=== PATIENT | female | born 1975 | race Caucasian/White ===

== ENCOUNTER 2016-10-07 08:56 | Emergency (ER) | payer BC ==
[2016-10-07 09:30] VITALS: BP 114/78
--- NOTE | 2016-10-07 10:13 | UC ---
Throat Pain/Nasal Wil HPI - HPI Summary HPI Summary: ONE WEEK OF COLD SYMPTOMS SINUS PRESSURE AND CONGESTION. NO FEVER. WORSENING FACIAL PRESSURE. - History of Current Complaint Chief Complaint: UCRespiratory Stated Complaint: SINUS/CHEST CONGESTION Time Seen by Provider: 10/07/16 09:36 Hx Obtained From: Patient Hx Last Menstrual Period: hysterectomy Onset/Duration: Gradual Onset, Lasting Weeks, Still Present Severity: Moderate Cough: Nonproductive Associated Signs & Symptoms: Positive: Hoarseness, Sinus Discomfort, Nasal Discharge - Epiglottits Risk Factors Epiglottis Risk Factors: Negative - Allergies/Home Medications Allergies/Adverse Reactions: Allergies Allergy/AdvReac Type Severity Reaction Status Date / Time Ketorolac Allergy Intermediate Swelling Verified 10/07/16 09:31 Of Face,Lips,& Throat Amoxicillin Allergy YEAST Verified 10/07/16 09:31 INFECTIONS Tramadol Allergy ,SEVERE Verified 10/07/16 09:31 HEADACHE NSAIDs AdvReac Intermediate See Comment Verified 10/07/16 09:31 PMH/Surg Hx/FS Hx/Imm Hx Previously Healthy: Yes Endocrine History Of: Reports: Diabetes - Pre-DIABETIC Cardiovascular History Of: Reports: Cardiac Disorders - SVT /ablation 20 years ago Denies: Hypertension, Congestive Heart Failure Respiratory History Of: Reports: Bronchitis - Hx OF, LAST WAS 2015, STATES OK NOW GI/ History Of: Reports: Ulcer - 05/04 PERFORATED PEPTIC ULCER, Kidney Stones - Hx OF , PASSED ON OWN, NONE IN RECENT YEARS Denies: Renal Disease Neurological History Of: Reports: Migraine - Hx OF, EVERY FEW MONTHS - Surgical History Surgical History: Yes Surgery Procedure, Year, and Place[place] 1991[place] [facility] [place] [facility] [facility]. 1992 VENTRAL HERNIA REPAIR & ABLATION [facility]. 2009 HE[place]ER [place] [facility] [place] GA[place] [facility] [place]. 2014 ADHESIONS REMOVED [place]BDOMEN [facility] [place] 2013 ABLATION [facility]. 2016 hernia repair with mesh insert - Family History Known Family History: Positive: Diabetes - Social History Occupation: Employed Full-time Lives: With Family Alcohol Use: Occasionally Alcohol Amount: 2-3 PER MONTH Substance Use Type: None Smoking Status (MU): Heavy Every Day Tobacco Smoker Type: Cigarettes Amount Used/How Often: <1 PACK A DAY 20 YRS Have You Smoked in the Last Year: Yes Household Exposure Type: Cigarettes Cessation Counseling: Counseled 3+Min - 10 Min - Immunization History Most Recent Influenza Vaccination: 2008 Most Recent Tetanus Shot: Up to date Most Recent Pneumonia Vaccination: 2003 AT LEAST Review of Systems Constitutional: Negative Skin: Negative Eyes: Negative ENT: Ear Ache, Nasal Discharge Respiratory: Cough Cardiovascular: Negative Gastrointestinal: Negative Genitourinary: Negative Motor: Negative Neurovascular: Negative Musculoskeletal: Negative Neurological: Negative Psychological: Negative All Other Systems Reviewed And Are Negative: Yes Physical Exam Triage Information Reviewed: Yes Appearance: No Pain Distress, Well-Nourished, Ill-Appearing - MILD Vital Signs: Initial Vital Signs Temp 98.7 F 10/07/16 09:26 Pulse 97 10/07/16 09:26 Resp 20 10/07/16 09:26 BP 114/78 10/07/16 09:26 Pulse Ox 100 10/07/16 09:26 Vital Signs Reviewed: Yes Eye Exam: Normal Eyes: Positive: Conjunctiva Clear ENT: Positive: Hearing grossly normal, Pharynx normal, Nasal congestion, TM dull Dental Exam: Normal Neck exam: Normal Neck: Positive: Nontender, No Lymphadenopathy Respiratory Exam: Normal Respiratory: Positive: Chest non-tender, Lungs clear, Normal breath sounds, No respiratory distress, No accessory muscle use Cardiovascular Exam: Normal Cardiovascular: Positive: RRR, No Murmur, Pulses Normal Abdominal Exam: Normal Abdomen Description: Positive: Nontender, No Organomegaly Musculoskeletal Exam: Normal Neurological Exam: Normal Psychological Exam: Normal Skin Exam: Normal Throat Pain/Nasal Course/Dx - Differential Dx/Diagnosis Differential Diagnosis/HQI/PQRI: Sinusitis, Tonsillitis, URI Provider Diagnoses: SINUSITIS Discharge - Discharge Plan Condition: Stable Disposition: HOME Prescriptions: DOXYcycline CAP(*) [DOXYcycline 100MG CAP(*)] 100 mg PO BID #20 cap Fluticasone NASAL SPRAY 50MCG* [Flonase NASAL SPRAY 50MCG*] 2 spray BOTH NARES DAILY #1 btl Patient Education Materials: Sinusitis (ED) Referrals: Iraida Robles NP [Primary Care Provider] -
== END 2016-10-07 10:10 | disposition home or self-care (01) ==
LOC: UCEAST 08:56
DX: J32.9 Chronic sinusitis, unspecified (principal); Z88.5 Allergy status to narcotic agent; Z88.6 Allergy status to analgesic agent; Z88.0 Allergy status to penicillin; F17.210 Nicotine dependence, cigarettes, uncomplicated; Z71.6 Tobacco abuse counseling
CPT/HCPCS: 99212; G0463

== ENCOUNTER 2016-12-19 09:34 | Inpatient (IN) | payer BC ==
--- NOTE | 2016-12-09 19:51 | HP ---
ADMISSION HISTORY AND PHYSICAL: DATE OF ADMISSION: 12/19/16 ATTENDING SURGEON: Dr. Anai Bunn (dictated by ESTELA Cadena). CHIEF COMPLAINT: Persistent abdominal pain. HISTORY OF PRESENT ILLNESS: This is a 41-year-old female, who has undergone multiple abdominal procedures including hernia repairs, the most recent being from June 2016. Surgery at that time included extensive lysis of adhesions , which included both omentum and small bowel. A large Ventralex mesh was used to cover multiple upper abdominal defects. Since that time, the patient has had persistent right-sided mid abdominal pain that comes as both jolts or shocks of sharp pain that will be unrelated to movement or activity. In addition, she notes a burning and tearing pain in the same area that typically occurs with movement including even simple movements such as sitting up from the exam table. More recently in the past 3 or 4 weeks, she has begun to notice left upper quadrant discomfort of the same type as noted above with the right mid abdomen. Finally, the patient has also had some GI symptoms including bloating and gassiness in the midepigastric region with associated nausea and occasional vomiting. These symptoms occur postprandial, but regardless of type or amount of food or liquid. The symptoms even occur with just water. She states that she is down to eating just one meal a day and has experienced weight loss of approximately 16 pounds since her last surgery. Initially, she had a CT scan in July ordered by Dr. Bunn, which showed no acute problems. There was a subsequent CT ordered through the [facility] on 10/14/16, which by report also showed no acute findings including no evidence of recurrent hernia. Finally, a HIDA scan with CCK was done on showing normal filling and emptying of the gallbladder with an ejection fraction of 98%. Dr. Bunn has discussed with her all of the indications and ramifications of additional surgery. The patient understands the risks and benefits as well as alternatives, but feels that she is "at the end of her road " and would like to proceed as scheduled with exploratory laparotomy, lysis of adhesions, possible removal of abdominal wall mesh, possible bowel resection ( she does have diverticula on both sides of the colon though with no evidence of history to suggest acute diverticulitis). PAST MEDICAL HISTORY: GERD with hiatal hernia (status post Maggie fundoplication, 2009). She had a gastric perforation in the following year from NSAID use; this required laparotomy and partial take down of her Maggie fundoplication. Most recent EGD by Dr. Hardin did show a hiatal hernia. She continues to have some GERD symptoms. She also has a past history of SVT with 2 attempted ablations. She rarely notices any symptoms at present. PAST SURGICAL HISTORY: Include laparoscopic repair of multiple ventral hernias with mesh, June 2016; x2 via low transverse incision; laparoscopic supracervical subtotal hysterectomy (she has at least 1 ovary); ablation for SVT as noted above; laparoscopic Maggie fundoplication with subsequent exploratory laparotomy for gastric perforation. Laparoscopic ventral hernia repair with mesh, 2011 and laparoscopy converted to open exploration for lysis of adhesions, 2013. CURRENT MEDICATIONS: 1. Omeprazole 40 mg b.i.d. 2. Milk of magnesia 30 mL q.h.s. 3. Extra Strength Tylenol 500 mg 2 tablets up to 4 times a day p.r.n. 4. She also takes calcium, zinc, and magnesium supplements once daily. DRUG ALLERGIES: NSAIDs (she does not take because of her prior gastric perforation history), TRAMADOL (BURRITO MAKER effects) (the patient has tolerated other narcotics), AMOXICILLIN (yeast infection). FAMILY HISTORY: Negative for anesthesia problems, bleeding, or clotting disorders. SOCIAL HISTORY: The patient is . She has 1 child. She is not currently working. She continues to smoke approximately one-half pack per day and was advised regarding the benefits of smoking cessation. She drinks up to 1 to 2 drinks on occasion but infrequently. She denies other drug use. REVIEW OF SYSTEMS: General: No recent constitutional symptoms or acute illnesses other than described in the HPI. Her weight has decreased as noted above. Cardiovascular: No history of hypertension, chest pain, or palpitations , or heart murmur. Respiratory: No history of asthma, chronic cough, or shortness of breath. GI: As above per HPI. She does have some chronic constipation. : No problems reported. 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 She is encouraged to have these done through her PCP or FOOD TRUCK CATERER. Endocrine: As above. No additions. PHYSICAL EXAMINATION GENERAL: Well-nourished, somewhat obese female, in no acute distress. VITAL SIGNS: 5 feet 2 inches, weight 198 pounds, BMI 36.2, blood pressure 122/ 72, pulse 78, respirations 16. HEENT: Pupils equal, round, and reactive. EOMs intact. No conjunctival pallor. Oropharynx: Teeth in good repair. No intraoral lesions. NECK: No lymphadenopathy, thyromegaly, or masses. LUNGS: Clear to auscultation. No wheezes. HEART: Regular rate and rhythm. No murmur noted. BREASTS: Not examined. ABDOMEN: Well-healed upper midline incision. No obvious visible or palpable bulges or masses. She has some mild tenderness in the epigastric region and some cnci-zl-jzvwolhy tenderness in the right mid abdomen. The remainder of the abdomen is soft and nontender. No suspicious masses or organomegaly. GENITALIA AND RECTAL: Not done. BACK: No spinous process or CVA tenderness. EXTREMITIES: No edema. NEUROLOGICAL: Grossly intact. SKIN: Warm and dry. No suspicious rashes or lesions noted. IMPRESSION: Chronic and recurrent abdominal pain after most recent ventral hernia repair with mesh. PLAN: Exploratory laparotomy; lysis of adhesions; possible removal of abdominal wall mesh; possible bowel resection. ESTELA BROOKS CC: Iraida Robles NP, Merlin Deal* [id number] #: [id number] MTDD
[~2016-12-19 09:34] MED LIST: Buffered Lidocaine 1% SYR 3ML* 3 ML/SYR SYRINGE INTRADERM ONE
[2016-12-19] MEDS ORDERED: ceFAZolin 2 GM PREMIX(*) 2 GM/50 ML BAG IVPB ONE (09:44)
[2016-12-19] MEDS ORDERED: fentaNYL* 50 MCG/ML 2 ML VIAL (100 MCG VIAL) ONE ×5 (11:03→15:27)
[2016-12-19] MEDS ORDERED: Midazolam* 1 MG/ML 2 ML VIAL (2 MG) ONE ×2 (11:03→11:54)
[2016-12-19] MEDS ORDERED: KETAMINE HCL* 50 MG/ML 10 ML VIAL ONE (12:08)
[2016-12-19] MEDS ORDERED: Cisatracurium* 2 MG/ML MDV 5 ML ONE (12:25)
[2016-12-19] MEDS ORDERED: Morphine PF AMP (0.5MG/ML)* 5 MG/10 ML AMP ONE (12:44)
[2016-12-19] MEDS ORDERED: Propofol* 10 MG/ML 20 ML BTL IV PUSH ONE (12:47)
[2016-12-19] MEDS ORDERED: Lidocaine 2% EPI 1:200000 MPF* 20 ML VIAL ONE (12:47)
[2016-12-19] MEDS ORDERED: Succinylcholine* 20 MG/ML 10 ML VIAL ONE (12:47)
[2016-12-19] MEDS ORDERED: Famotidine IV* 10 MG/ML 2 ML (20 mg) ONE (12:47)
[2016-12-19] MEDS ORDERED: Dexamethasone IV* 4 MG/ML 1 ML (4 MG) ONE (12:47)
[2016-12-19] MEDS ORDERED: Lidocaine 2% PF * 5 ML VIAL ONE (12:47)
[2016-12-19] MEDS ORDERED: Ondansetron INJ* 2 MG/ML VIAL ONE (12:47)
[2016-12-19] MEDS ORDERED: Dexmedetomidine* 200 MCG/2 ML 2 ML VIAL ONE (13:19)
[2016-12-19] MEDS ORDERED: Levalbuterol 0.63MG/3ML NEB INH PRN (13:28)
[2016-12-19] MEDS ORDERED: Ondansetron INJ* 2 MG/ML VIAL IV PRN (13:28)
[2016-12-19] MEDS ORDERED: DiMENhydriNATE IV* 50 MG/ML VIAL IV PUSH PRN ×2 (13:28→18:14)
[2016-12-19] MEDS ORDERED: Acetaminophen TAB* 325 MG PO PRN (13:28)
[2016-12-19] MEDS ORDERED: EPHEDrine (Pressors)* 50 MG/ML VIAL IV PUSH PRN (13:31)
[2016-12-19] MEDS ORDERED: Ropivacaine 0.2% EPIDURAL* 200 MG/100 ML BAG EPIDURAL SCH (14:00)
[2016-12-19] MEDS ORDERED: Ropivacaine 0.2% EPIDURAL* 200 MG/100 ML BAG EPIDURAL ONE (14:20)
[2016-12-19] MEDS: fentaNYL* 50 MCG/ML 2 ML VIAL (100 MCG VIAL) IV PRN ×4 (15:05→16:14)
[2016-12-19] MEDS ORDERED: diPHENhydraMINE IV* 50 MG/ML 1 ml VIAL (BENADRYL) ONE (16:59)
[2016-12-19] MEDS ORDERED: NS 0.9% 500 ML BAG* 500 ML IV ONE (17:00)
[2016-12-19] MEDS: diPHENhydraMINE IV* 50 MG/ML 1 ml VIAL (BENADRYL) IV PRN (17:02)
[2016-12-19] MEDS: HYDROcodone/ACETAMIN 5-325 MG* 1 TAB PO PRN ×2 (17:37→20:34)
[2016-12-19] MEDS: Scopolamine 1.5 mg* PATCH TRANSDERM SCH (17:39)
[2016-12-19] MEDS ORDERED: Naloxone* 0.4 MG/ML 1 ML VIAL IV PRN (18:14)
[2016-12-19] MEDS ORDERED: HYDROcodone/ACETAMIN 5-325 MG* 1 TAB PO PRN (18:14)
[2016-12-19] MEDS ORDERED: PROCHLORPERAZINE INJ 5 MG/ML 2 ML VIAL IV PRN (18:14)
[2016-12-19] MEDS ORDERED: diPHENhydraMINE IV* 50 MG/ML 1 ml VIAL (BENADRYL) IV PRN (18:14)
[2016-12-19] MEDS: HYDROmorphone* 1 MG/ML 1 ML SYR IV SLOW PU PRN ×2 (19:25→23:42)
[2016-12-19] MEDS: Nalbuphine* 20 MG/ML 1 ML VIAL IV PRN (19:55)
[2016-12-19] MEDS: Acetaminophen TAB* 325 MG PO SCH (20:37)
[2016-12-19] MEDS: D5W 1/2 NS KCl 20 Meq 1000 ML* 1,000 ML IV SCH (23:55)
[2016-12-20] MEDS: HYDROcodone/ACETAMIN 5-325 MG* 1 TAB PO PRN ×2 (00:50→05:44)
--- NOTE | 2016-12-20 01:27 | OP ---
CC: [facility] OPERATIVE SUMMARY: DATE OF OPERATION: 12/19/16 DATE OF : 71 SURGEON: Anai Bunn MD. ASSISTANTS: Dr. Andrade and MS. Jayda PRE-OP DIAGNOSIS: Abdominal pain. POST-OP DIAGNOSIS: Abdominal pain. OPERATIVE PROCEDURE: Exploratory laparotomy, lysis of adhesions and placement of Interceed. INDICATIONS: Ms. Parmar is a 41-year-old woman who has been dealing with abdominal pain ever since hernia surgery sometime ago. This prompted the plan for surgical exploration. DESCRIPTION OF PROCEDURE: She was brought to the operating room, placed on the OR table in a supine position after having been given epidural anesthesia and was then given general anesthesia. The abdomen was then prepped and draped in the usual sterile fashion. An incision was made along the previous upper midline scar excising the old scar and subcutaneous tissue was divided with electrocautery down to the level of the fascia. This was then sharply incised until the abdomen could be entered. There were noted to be dense adhesions of omentum to the anterior abdominal wall, so progression of the extension of the incision was gradual, taking care to avoid entering bowel and omentum that were adherent to the anterior abdominal wall. Adhesions were taken down using a combination of sharp and electrocautery as well as blunt dissection until the entire incision could be extended. Then it was recognized that there were dense adhesions of abdominal contents to the intraabdominal wall. These were taken down using the combination of sharp and blunt and/or electrocautery dissection. The adhesions were adherent to the old mesh, but the abdominal contents had not ingrown into the old mesh. Therefore, the process of taking them down while gradual, was steady. Once all the adhesions were taken down, the abdominal contents were eviscerated. The small intestine was run from the ligament of Treitz to the ileocecal valve. No obvious abnormalities were encountered. It should be mentioned that the omentum had been densely adherent to the anterior abdominal wall inferiorly and upon taking this down it was recognized that there was some residual old mesh from the previous operation caught up in the omentum. This old mesh was excised and thought to be possibly the source of her abdominal pain because of the dense adhesions. The large intestine was palpated throughout its length and no obvious abnormalities were encountered, so the small intestine was replaced in the abdomen and the old mesh was excised using electrocautery and then the decision was made to cover the mesh of the recent hernia repair with Interceed. We placed Interceed over the mesh and secured it in place to the mesh to provide protection of the abdominal contents from the mesh. This was done using 3-0 Polysorb to tack the Interceed in place. Three pieces of Interceed were required. Then the abdomen was closed using #1 Ti-Cron in a continuous fashion. Subcutaneous tissue was irrigated with saline and then the skin was closed with jose. Dry sterile dressing was applied. All sponge and instrument counts were correct. The patient tolerated the procedure well and was transferred to Recovery in a stable condition. [id number]/CPS #: [id number] MTDD
[2016-12-20] MEDS: Acetaminophen TAB* 325 MG PO SCH ×2 (03:08→04:06)
[2016-12-20] MEDS: Nalbuphine* 20 MG/ML 1 ML VIAL IV PRN (03:27)
[2016-12-20] MEDS: Ondansetron INJ* 2 MG/ML VIAL IV PRN (05:59)
[2016-12-20 06:16] LABS: Hemoglobin 10.8 g/dl (12.0-16.0)
[2016-12-20 06:19] LABS: Hematocrit 33 % (35-47); Mean Corpuscular HGB Conc 33 g/dl (31-36); Mean Corpuscular Hemoglobin 30 pg (27-31); Mean Corpuscular Volume 91 fL (80-97); Mean Platelet Volume 9 um3 (7.4-10.4); Red Blood Count 3.66 10^6/ul (4.0-5.4); Red Cell Distribution Width 13 % (10.5-15); White Blood Count 17.9 10^3/ul (3.5-10.8)
[2016-12-20] MEDS ORDERED: Nalbuphine* 20 MG/ML 1 ML VIAL IV PRN (06:25)
[2016-12-20] MEDS: D5W 1/2 NS KCl 20 Meq 1000 ML* 1,000 ML IV SCH ×3 (07:28→20:52)
--- NOTE | 2016-12-20 08:08 | PN ---
Progress Note - Progress Note Note: Surgery Ms. Parmar c/o numbness in right leg and wants epidural off. She has some pain in LUQ. Vital Signs 12/19/16 12/19/16 12/19/16 09:48 14:12 14:15 Temperature 97.0 F 97.7 F Pulse Rate 74 78 75 Respiratory 16 20 18 Rate Blood Pressure 119/64 93/57 93/51 (mmHg) O2 Sat by Pulse 99 92 99 Oximetry 12/19/16 12/19/16 12/19/16 14:20 14:25 14:30 Temperature Pulse Rate 71 74 70 Respiratory 18 18 18 Rate Blood Pressure 97/49 97/52 97/54 (mmHg) O2 Sat by Pulse 99 99 99 Oximetry 12/19/16 12/19/16 12/19/16 14:45 15:00 15:05 Temperature Pulse Rate 71 67 Respiratory 18 18 18 Rate Blood Pressure 99/55 91/53 (mmHg) O2 Sat by Pulse 99 99 Oximetry 12/19/16 12/19/16 12/19/16 15:15 15:16 15:28 Temperature Pulse Rate 71 Respiratory 18 18 16 Rate Blood Pressure 96/50 (mmHg) O2 Sat by Pulse 99 Oximetry 12/19/16 12/19/16 12/19/16 15:30 15:45 16:00 Temperature 97.3 F Pulse Rate 65 65 63 Respiratory 18 16 16 Rate Blood Pressure 93/56 95/61 93/60 (mmHg) O2 Sat by Pulse 100 98 99 Oximetry 12/19/16 12/19/16 12/19/16 16:14 16:40 17:02 Temperature 97.4 F Pulse Rate 65 Respiratory 18 15 14 Rate Blood Pressure 84/58 (mmHg) O2 Sat by Pulse 98 Oximetry 12/19/16 12/19/16 12/19/16 17:12 17:25 17:37 Temperature 97.4 F Pulse Rate 65 75 Respiratory 15 14 9 Rate Blood Pressure 84/58 (mmHg) O2 Sat by Pulse 98 94 Oximetry 12/19/16 12/19/16 12/19/16 17:42 18:02 18:35 Temperature 97.3 F 98.0 F Pulse Rate 69 69 Respiratory 12 16 14 Rate Blood Pressure 96/62 105/62 (mmHg) O2 Sat by Pulse 99 99 Oximetry 12/19/16 12/19/16 12/19/16 19:15 19:25 19:55 Temperature Pulse Rate Respiratory 14 14 14 Rate Blood Pressure (mmHg) O2 Sat by Pulse Oximetry 12/19/16 12/19/16 12/19/16 20:34 20:37 20:55 Temperature 98.4 F Pulse Rate 59 Respiratory 14 14 14 Rate Blood Pressure 99/64 (mmHg) O2 Sat by Pulse 100 Oximetry 12/19/16 12/19/16 12/19/16 22:34 22:39 23:42 Temperature 99.2 F Pulse Rate 59 Respiratory 14 14 16 Rate Blood Pressure 104/67 (mmHg) O2 Sat by Pulse 98 Oximetry 12/20/16 12/20/16 12/20/16 00:00 00:39 00:42 Temperature 99.3 F Pulse Rate 59 Respiratory 16 14 Rate Blood Pressure 107/70 (mmHg) O2 Sat by Pulse 95 99 Oximetry 12/20/16 12/20/16 12/20/16 00:50 02:50 03:18 Temperature 98.0 F Pulse Rate 56 Respiratory 16 14 14 Rate Blood Pressure 114/66 (mmHg) O2 Sat by Pulse 95 Oximetry 12/20/16 12/20/16 12/20/16 03:27 04:27 05:44 Temperature Pulse Rate Respiratory 16 16 16 Rate Blood Pressure (mmHg) O2 Sat by Pulse Oximetry 12/20/16 07:09 Temperature 98.2 F Pulse Rate 69 Respiratory 16 Rate Blood Pressure 112/61 (mmHg) O2 Sat by Pulse 95 Oximetry Abd: good BS, soft, tender near incision Incision: clean and dry. No signs infection. Intake & Output 12/19/16 12/20/16 12/20/16 22:59 06:59 14:59 Intake Total 920 3300 1039 Output Total 550 1700 Balance 370 1600 1039 Intake: IV Fluids 1000 1039 D5W 1/2 NS 20 meq KCL 1000 1039 IVPB 500 D5W 1/2 NS 20 meq KCL 500 Oral 920 1800 Output: العراقي 550 1700 Other: # Bowel Movements 0 Laboratory Results - last 24 hr 12/19/16 12/20/16 10:03 05:50 WBC 17.9 H RBC 3.66 L Hgb 10.8 L Hct 33 L MCV 91 MCH 30 MCHC 33 RDW 13 Plt Count 275 MPV 9 Neut % (Auto) 84.3 H Lymph % (Auto) 6.4 L Sullivan % (Auto) 7.9 Eos % (Auto) 0 Baso % (Auto) 1.4 Absolute Neuts (auto) 15.0 H Absolute Lymphs (auto) 1.1 Absolute Monos (auto) 1.4 H Absolute Eos (auto) 0 Absolute Basos (auto) 0.2 Absolute Nucleated RBC 0 Nucleated RBC % 0 POC Glucose (mg/dL) 105 A/P: POD#1 s/p ex lap YESSI; doing well; has leukocytosis. Will re-check in 1-2 days. Will advance diet. Defer decisions re: epidural to anesthesia. When epidural out, العراقي can come out. CLFoster
[2016-12-20] MEDS: HYDROmorphone* 1 MG/ML 1 ML SYR IV PRN (08:09)
[2016-12-20] MEDS: HYDROmorphone PCA* 20 MG/20 ML PCA.SYRING PCA SCH (10:49)
[2016-12-20] MEDS: diPHENhydraMINE IV* 50 MG/ML 1 ml VIAL (BENADRYL) IV PRN (13:23)
[2016-12-21] MEDS: D5W 1/2 NS KCl 20 Meq 1000 ML* 1,000 ML IV SCH ×3 (03:07→18:01)
[2016-12-21 04:57] LABS: Hematocrit 30 % (35-47); Hemoglobin 9.7 g/dl (12.0-16.0); Mean Corpuscular HGB Conc 33 g/dl (31-36); Mean Corpuscular Hemoglobin 30 pg (27-31); Mean Corpuscular Volume 92 fL (80-97); Mean Platelet Volume 9 um3 (7.4-10.4); Red Blood Count 3.22 10^6/ul (4.0-5.4); Red Cell Distribution Width 13 % (10.5-15); White Blood Count 11.7 10^3/ul (3.5-10.8)
[2016-12-21] MEDS: Ondansetron INJ* 2 MG/ML VIAL IV PRN ×2 (09:17→18:08)
--- NOTE | 2016-12-21 12:35 | PN ---
Progress Note - Progress Note SOAP: Subjective: c/o abd pain, requires MARKER DELIVERY. No flatus/N/V. Objective: Vital Signs Temp 97.7 F 12/21/16 11:24 Pulse 86 12/21/16 11:24 Resp 17 12/21/16 11:24 BP 119/70 12/21/16 11:24 Pulse Ox 94 12/21/16 11:24 NAD Abd: incis c/d/i, no erythema; diffuse tenderness, no BS. Intake & Output 12/20/16 12/21/16 12/21/16 18:59 06:59 18:59 Intake Total 2759 3742 638 Output Total 2100 1750 825 Balance 659 1991 - Intake: IV Fluids 1988 3142 638 D5W 1/2 NS 20 meq KCL 1988 3142 638 Oral 770 600 0 Output: Urine 1300 1750 725 Watkins 800 Emesis 100 Laboratory Results - last 24 hr 12/21/16 04:21 WBC 11.7 H RBC 3.22 L Hgb 9.7 L Hct 30 L MCV 92 MCH 30 MCHC 33 RDW 13 Plt Count 237 MPV 9 Neut % (Auto) 72.1 Lymph % (Auto) 15.5 L Gentry % (Auto) 8.4 Eos % (Auto) 2.4 Baso % (Auto) 1.6 Absolute Neuts (auto) 8.5 H Absolute Lymphs (auto) 1.8 Absolute Monos (auto) 1.0 H Absolute Eos (auto) 0.3 Absolute Basos (auto) 0.2 Absolute Nucleated RBC 0 Nucleated RBC % 0 Assessment: POD#2 s/p exlap YESSI; postop ileus. Leukocytosis improving. Plan: Cont MARKER DELIVERY. Add po meds. Amb. Shower. Home 1-2 days?
[2016-12-21] MEDS: HYDROcodone/ACETAMIN 5-325 MG* 1 TAB PO PRN (18:09)
[2016-12-22] MEDS: D5W 1/2 NS KCl 20 Meq 1000 ML* 1,000 ML IV SCH ×4 (00:58→22:01)
[2016-12-22] MEDS: Ondansetron INJ* 2 MG/ML VIAL IV PRN ×2 (03:59→08:04)
[2016-12-22] MEDS: HYDROcodone/ACETAMIN 5-325 MG* 1 TAB PO PRN (05:18)
[2016-12-22] MEDS: Omeprazole CAP* 20 MG PO SCH (05:19)
[2016-12-22] MEDS: HYDROmorphone PCA* 20 MG/20 ML PCA.SYRING PCA SCH (07:00)
[2016-12-22] MEDS: HYDROmorphone* 1 MG/ML 1 ML SYR IV PRN (08:08)
[2016-12-22] MEDS ORDERED: LORazepam INJ* 2 MG/ML 1 ML VIAL IV PUSH PRN (08:28)
[2016-12-22] MEDS ORDERED: Metoclopramide IV* 5 MG/ML 2 ML VIAL IV PRN (09:14)
[2016-12-22] MEDS ORDERED: Lidocaine 2% VISCOUS* 15 ML UDC PO PRN (10:30)
--- NOTE | 2016-12-22 11:24 | SURGPN ---
Subjective - Introduction -: Feeling better after NG tube inserted, more than a liter came out. Denies N/V now. No flatus yet. - Medications -: Active Medications Generic Name Dose Route Start Last Admin Trade Name Freq PRN Reason Stop Dose Admin Hydrocodone Bitart/Acetaminophen 1 tab 12/19/16 17:00 12/20/16 05:44 [place] 5-325 Tab* PO 1 tab Q4H PRN Administration PAIN Hydrocodone Bitart/Acetaminophen 2 tab 12/20/16 06:25 12/22/16 05:18 [place] 5-325 Tab* PO 2 tab Q4H PRN Administration PAIN Diphenhydramine HCl 25 mg 12/19/16 16:59 12/20/16 13:23 Benadryl Iv* IV 25 mg Q2H PRN Administration ITCHING Ephedrine Sulfate 5 mg 12/19/16 13:31 Ephedrine Sulfate (Pressors)* IV PUSH Q5M PRN SYSTOLIC BP BELOW 90 MMHG Hydromorphone HCl 1 mg 12/20/16 06:24 12/22/16 08:08 Dilaudid Iv* IV 1 mg Q1H PRN Administration PAIN Potassium Chloride/Dextrose 1,000 mls @ 150 mls/hr 12/19/16 15:00 12/22/16 07 :41 D5w 1/2 Ns Kcl 20 Meq 1000 Ml* IV 150 mls/hr PER RATE SHELL Administration Hydromorphone HCl 20 mg in 20 mls @ 0 mls/hr 12/20/16 11:00 12/22/16 07:00 Dilaudid Corner Block Cutter* SODA CLERK 1 mls/hr .change Q24H SHELL Administration Protocol Per Protocol Lorazepam 0.5 mg 12/22/16 08:28 12/22/16 09:58 Ativan Inj* IV PUSH 0.5 mg Q3H PRN Administration AGITATION Metoclopramide HCl 10 mg 12/22/16 09:14 12/22/16 09:58 Reglan Iv* IV 10 mg Q6H PRN Administration NAUSEA Nalbuphine HCl 5 mg 12/20/16 06:25 Nubain* IV Q3H PRN ITCHING/NAUSEA/VOMITING Omeprazole 20 mg 12/22/16 06:00 12/22/16 05:19 Prilosec Cap* PO 20 mg DAILY@0600 SHELL Administration Ondansetron HCl 4 mg 12/19/16 13:31 12/22/16 08:04 Zofran Inj* IV 4 mg Q4H PRN Administration NAUSEA Pharmacy Profile Note 1 note 12/22/16 14:00 Scopolomine Patch Remove* PATCH OFF Q72H SHELL Scopolamine 1 patch 12/19/16 14:00 12/19/16 17:39 Transderm-Scop 1.5 Mg Patch* TRANSDERM 1 patch Q72H SHELL Administration Objective - Objective -: Awake and alert, appears a little upset and frustrated, but in NAD. - Intake and Output -: Intake & Output 12/20/16 12/21/16 12/22/16 12/23/16 06:59 06:59 06:59 06:59 Intake Total 4220 6501 5233 0 Output Total 2250 3850 1575 1750 Balance 1970 2651 3658 -1750 Weight 201 lb Intake: IV Fluids 1000 5131 3248 D5W 1/2 NS 20 meq KCL 1000 5131 3248 IVPB 500 D5W 1/2 NS 20 meq KCL 500 Oral 2720 1370 1985 0 Output: NG Tube Drainage Amount 900 Urine 3050 1275 700 Watkins 2250 800 Emesis 300 150 Other: Estimated Void Medium Medium # Bowel Movements 0 0 # Voids 4 Surgical Physical Exam - Comments -: VSS, afebrile Lungs CTA bilat. Heart RRR, no murmurs Abdomen firm and moderately distended. Moderate incisional tenderness. No rigidity. Incision clean, intact and dry. Ext. no edema NG secured with approx 100cc bilious output. Assessment and Plan - Assessment -: A 41 y/o female, POD#3, s/p exploratory laparotomy with YESSI and VIH repair. Likely Post-op ileus. - Plan Additional Comments: Keep NPO for now. NG to low suction. Abdominal xray today for evaluation of probable post-op ileus. Ambulate as tolerated. Await bowel function DVT and GI prophylaxis
[2016-12-22] MEDS: Phenol 1.4% Spray* 177 ML BTL MT PRN ×3 (12:54→21:59)
[2016-12-22] MEDS ORDERED: Scopolomine PATCH Remove* 1 NOTE MISC PATCH OFF SCH (14:00)
--- NOTE | 2016-12-22 14:18 | RAD ---
Indication: Vomiting status post laparotomy. Comparison: August 04, 2016 CT. Technique: Supine and upright views of the abdomen. Report: Midline cutaneous ojse. Surgical clips reflecting previous ventral hernia repair. Nasogastric tube with tip at level of the proximal gastric body. Diffuse mild to moderate small bowel dilatation with air-fluid levels. Gas distention of the colon. Moderate stool in the proximal descending colon. Negative for conspicuous free air. No suspicious calcifications or mass effect. Mild linear atelectasis at the LEFT lung base . IMPRESSION: Consider postoperative ileus versus early distal small bowel obstruction. The nasogastric tube should be advanced.
[2016-12-22] MEDS: Heparin VIAL(*) 5000 UNITS/ML VIAL (FIVE THOUSAND) SUBCUT SCH ×2 (14:49→21:58)
[2016-12-22] MEDS: Scopolamine 1.5 mg* PATCH TRANSDERM SCH (14:50)
[2016-12-23] MEDS: D5W 1/2 NS KCl 20 Meq 1000 ML* 1,000 ML IV SCH ×2 (04:36→10:35)
[2016-12-23] MEDS: Phenol 1.4% Spray* 177 ML BTL MT PRN ×3 (04:37→14:10)
[2016-12-23] MEDS: HYDROmorphone* 1 MG/ML 1 ML SYR IV PRN (04:43)
[2016-12-23] MEDS: Omeprazole CAP* 20 MG PO SCH (05:35)
[2016-12-23] MEDS: Heparin VIAL(*) 5000 UNITS/ML VIAL (FIVE THOUSAND) SUBCUT SCH ×3 (05:36→22:31)
--- NOTE | 2016-12-23 07:28 | PN ---
Progress Note - Progress Note Note: Surgery Ms. Parmar reports she feels she could have a BM, but it "hurts". She denies flatus. Vital Signs 12/22/16 12/22/16 12/22/16 07:31 08:00 08:08 Temperature 98.1 F Pulse Rate 78 Respiratory 16 20 22 Rate Blood Pressure 112/70 (mmHg) O2 Sat by Pulse 97 97 Oximetry 12/22/16 12/22/16 12/22/16 09:00 09:08 09:58 Temperature Pulse Rate Respiratory 20 20 20 Rate Blood Pressure (mmHg) O2 Sat by Pulse 97 Oximetry 12/22/16 12/22/16 12/22/16 10:58 11:00 11:35 Temperature 97.4 F Pulse Rate 86 Respiratory 18 18 16 Rate Blood Pressure 126/73 (mmHg) O2 Sat by Pulse 98 98 Oximetry 12/22/16 12/22/16 12/22/16 13:00 15:00 15:30 Temperature 97.5 F Pulse Rate 97 Respiratory 18 18 18 Rate Blood Pressure 129/70 (mmHg) O2 Sat by Pulse 95 95 95 Oximetry 12/22/16 12/22/16 12/22/16 17:00 18:30 19:00 Temperature Pulse Rate Respiratory 20 16 Rate Blood Pressure (mmHg) O2 Sat by Pulse 95 99 99 Oximetry 12/22/16 12/22/16 12/22/16 19:10 20:00 20:56 Temperature 97.6 F Pulse Rate 101 86 Respiratory 16 16 Rate Blood Pressure 129/78 (mmHg) O2 Sat by Pulse 94 Oximetry 12/22/16 12/22/16 12/22/16 21:00 23:00 23:13 Temperature 97.4 F Pulse Rate 83 Respiratory 16 16 16 Rate Blood Pressure 108/64 (mmHg) O2 Sat by Pulse 100 99 96 Oximetry 12/23/16 12/23/16 12/23/16 01:00 03:00 03:15 Temperature 98.1 F Pulse Rate 82 Respiratory 16 15 16 Rate Blood Pressure 124/69 (mmHg) O2 Sat by Pulse 98 100 97 Oximetry 12/23/16 12/23/16 12/23/16 04:43 05:00 05:43 Temperature Pulse Rate Respiratory 16 16 16 Rate Blood Pressure (mmHg) O2 Sat by Pulse 97 Oximetry abd: diminished BS, distended, tender near incision. Incision: clean and dry NGT: thin de leon fluid Intake & Output 12/22/16 12/23/16 12/23/16 22:59 06:59 14:59 Intake Total 885 255 Output Total 1650 1200 Balance -765 -945 Intake: IV Fluids 825 255 D5W 1/2 NS 20 meq KCL 825 255 Oral 60 Output: NG Tube Drainage Amount 400 350 Urine 1250 850 A/P: POD#4 now with post-op ileus. Will repeat AXR in AM. Okay to shower. Await return of GI function.
[2016-12-23] MEDS ORDERED: Bisacodyl SUPP* 10 MG SUPP ONE (08:59)
[2016-12-24] MEDS: D5W 1/2 NS KCl 20 Meq 1000 ML* 1,000 ML IV SCH ×3 (00:23→20:44)
[2016-12-24] MEDS: Heparin VIAL(*) 5000 UNITS/ML VIAL (FIVE THOUSAND) SUBCUT SCH ×3 (05:51→21:33)
[2016-12-24] MEDS: Omeprazole CAP* 20 MG PO SCH (05:52)
--- NOTE | 2016-12-24 08:36 | RAD ---
INDICATION: Postoperative ileus COMPARISON: December 22, 2016 TECHNIQUE: Erect and supine views of the abdomen are submitted. FINDINGS: Bones: There are no acute bony findings. Soft tissues: There is a nasogastric tube projecting over the stomach. There is a ventral mesh. There is recent midline laparotomy.. Bowel gas pattern: There is air in large and small bowel with scattered air fluid levels. The bowel appears less distended. The findings are likely related to a resolving ileus Calcifications: There are no abnormal calcifications. Other: None IMPRESSION: SUSPECT RESOLVING ILEUS. RECOMMEND CONTINUED FOLLOW-UP
--- NOTE | 2016-12-24 08:45 | PN ---
Progress Note - Progress Note Note: Surgery Ms. Parmar reports several BM and flatus. She c/o pain from NGT and some incisional pain. Otherwise feels better. Vital Signs 12/23/16 12/23/16 12/23/16 09:00 11:00 11:07 Temperature 97.9 F Pulse Rate 94 Respiratory 18 18 16 Rate Blood Pressure 125/80 (mmHg) O2 Sat by Pulse 98 99 96 Oximetry 12/23/16 12/23/16 12/23/16 13:00 14:48 15:00 Temperature Pulse Rate Respiratory 18 18 Rate Blood Pressure (mmHg) O2 Sat by Pulse 96 96 96 Oximetry 12/23/16 12/23/16 12/23/16 15:31 16:00 17:00 Temperature 97.9 F Pulse Rate 81 Respiratory 16 18 Rate Blood Pressure 111/77 (mmHg) O2 Sat by Pulse 100 100 100 Oximetry 12/23/16 12/23/16 12/23/16 18:30 19:00 19:20 Temperature 98.6 F Pulse Rate 86 Respiratory 18 15 16 Rate Blood Pressure 123/72 (mmHg) O2 Sat by Pulse 100 98 97 Oximetry 12/23/16 12/23/16 12/23/16 19:52 21:00 23:00 Temperature Pulse Rate Respiratory 15 15 15 Rate Blood Pressure (mmHg) O2 Sat by Pulse 98 98 Oximetry 12/23/16 12/24/16 12/24/16 23:15 01:00 03:00 Temperature 97.7 F Pulse Rate 88 Respiratory 16 15 15 Rate Blood Pressure 128/70 (mmHg) O2 Sat by Pulse 98 97 98 Oximetry 12/24/16 12/24/16 12/24/16 03:49 04:20 05:00 Temperature 98.3 F Pulse Rate 85 Respiratory 16 21 Rate Blood Pressure 133/76 (mmHg) O2 Sat by Pulse 98 98 98 Oximetry 12/24/16 12/24/16 12/24/16 06:30 07:00 07:40 Temperature 97.3 F Pulse Rate 92 Respiratory 21 16 16 Rate Blood Pressure 128/74 (mmHg) O2 Sat by Pulse 98 99 99 Oximetry 12/24/16 08:00 Temperature Pulse Rate Respiratory 16 Rate Blood Pressure (mmHg) O2 Sat by Pulse 99 Oximetry Abd: distended, diminished BS, soft, tender near incision. Incision: clean and dry, no signs infection. Intake & Output 12/23/16 12/24/16 12/24/16 22:59 06:59 14:59 Intake Total 1669 571 Output Total 1500 2000 800 Balance 169 -1429 -800 Intake: IV Fluids 1579 531 D5W 1/2 NS 20 meq KCL 1579 531 Oral 90 40 Output: NG Tube Drainage Amount 300 350 Urine 1200 1650 800 Other: # Bowel Movements 0 Estimated Stool Amount Small POD#5 s/p ex lap, YESSI; doing well, making progress. Will check labs as it has been several days of IVF and NGT. Will start trial of NGT clamping.
[2016-12-24] MEDS: HYDROmorphone* 1 MG/ML 1 ML SYR IV PRN ×2 (09:47→14:00)
[2016-12-24 10:18] LABS: Hematocrit 33 % (35-47); Mean Corpuscular HGB Conc 34 g/dl (31-36); Mean Corpuscular Hemoglobin 30 pg (27-31); Mean Corpuscular Volume 91 fL (80-97); Mean Platelet Volume 8 um3 (7.4-10.4); Red Blood Count 3.62 10^6/ul (4.0-5.4); Red Cell Distribution Width 13 % (10.5-15); White Blood Count 10.1 10^3/ul (3.5-10.8)
[2016-12-24 10:37] LABS: Albumin 3.3 g/dL (3.2-5.2); BUN/Creatinine Ratio 4.5 (8-20); Calcium 9.3 mg/dL (8.6-10.3); EGFR African American 125.7 (>60); EGFR Non-African American 97.7 (>60); Globulin 3.4 g/dL (2-4); Potassium 4.1 mmol/L (3.5-5.0); Total Bilirubin 0.2 mg/dL (0.2-1.0); Total Protein 6.7 g/dL (6.4-8.9)
--- NOTE | 2016-12-24 12:41 | PN ---
Progress Note - Progress Note Note: Patient has been doing well. NG tube attached back to low suction, only a total of 50 cc clear output noted. Will d/c NG tube and resume clear liquids today. Plan to advance diet as tolerated. Hopefully d/c home by tomorrow or Thursday.
[2016-12-24] MEDS: HYDROcodone/ACETAMIN 5-325 MG* 1 TAB PO PRN ×2 (16:57→20:44)
[2016-12-25] MEDS: HYDROcodone/ACETAMIN 5-325 MG* 1 TAB PO PRN ×3 (02:11→10:27)
[2016-12-25] MEDS: D5W 1/2 NS KCl 20 Meq 1000 ML* 1,000 ML IV SCH (03:36)
[2016-12-25] MEDS: Heparin VIAL(*) 5000 UNITS/ML VIAL (FIVE THOUSAND) SUBCUT SCH (06:28)
[2016-12-25] MEDS: Omeprazole CAP* 20 MG PO SCH (06:28)
--- NOTE | 2016-12-25 08:54 | PN ---
Progress Note - Progress Note Note: Surgery Ms. Parmar feels "much better". She is tolerating a clear liquid diet and is hungry for regular food. She is moving bowels. She is on oral pain medicine and says it is controlling her pain. Vital Signs 12/24/16 12/24/16 12/24/16 09:47 10:47 11:32 Temperature 98.1 F Pulse Rate 78 Respiratory 16 16 16 Rate Blood Pressure 124/73 (mmHg) O2 Sat by Pulse 99 Oximetry 12/24/16 12/24/16 12/24/16 14:00 15:00 15:21 Temperature 98.3 F Pulse Rate 79 Respiratory 16 16 18 Rate Blood Pressure 122/67 (mmHg) O2 Sat by Pulse 98 Oximetry 12/24/16 12/24/16 12/24/16 16:00 16:57 18:57 Temperature Pulse Rate Respiratory 16 15 Rate Blood Pressure (mmHg) O2 Sat by Pulse 98 Oximetry 12/24/16 12/24/16 12/24/16 19:10 19:47 20:44 Temperature 98.0 F Pulse Rate 68 Respiratory 22 16 15 Rate Blood Pressure 127/74 (mmHg) O2 Sat by Pulse 98 Oximetry 12/24/16 12/25/16 12/25/16 22:44 00:02 02:11 Temperature 98.0 F Pulse Rate 81 Respiratory 15 16 20 Rate Blood Pressure 118/69 (mmHg) O2 Sat by Pulse 98 Oximetry 12/25/16 12/25/16 12/25/16 03:38 03:57 06:28 Temperature 98.0 F Pulse Rate 79 Respiratory 16 14 15 Rate Blood Pressure 109/71 (mmHg) O2 Sat by Pulse 98 Oximetry 12/25/16 07:19 Temperature 97.5 F Pulse Rate 65 Respiratory 16 Rate Blood Pressure 113/65 (mmHg) O2 Sat by Pulse 98 Oximetry Abd: good BS, soft, non-tender except near incision. Incision: clean and dry. Intake & Output 12/24/16 12/25/16 12/25/16 22:59 06:59 14:59 Intake Total 900 983 Balance 900 983 Intake: IV Fluids 0 933 D5W 1/2 NS 20 meq KCL 0 933 Oral 900 50 Other: Estimated Void Medium # Bowel Movements 1 Estimated Stool Amount Small Laboratory Results - last 24 hr 12/24/16 12/24/16 10:06 10:06 WBC 10.1 RBC 3.62 L Hgb 11.0 L Hct 33 L MCV 91 MCH 30 MCHC 34 RDW 13 Plt Count 340 MPV 8 Neut % (Auto) 76.3 Lymph % (Auto) 11.4 L [place] % (Auto) 8.4 Eos % (Auto) 3.6 Baso % (Auto) 0.3 Absolute Neuts (auto) 7.7 Absolute Lymphs (auto) 1.2 Absolute Monos (auto) 0.8 Absolute Eos (auto) 0.4 Absolute Basos (auto) 0 Absolute Nucleated RBC 0 Nucleated RBC % 0 Sodium 136 Potassium 4.1 Chloride 106 Carbon Dioxide 24 Anion Gap 6 BUN 3 L Creatinine 0.66 Est GFR ( Amer) 125.7 Est GFR (Non-Af Amer) 97.7 BUN/Creatinine Ratio 4.5 L Glucose 123 H Calcium 9.3 Magnesium 2.0 Total Bilirubin 0.20 AST 10 L ALT 6 L Alkaline Phosphatase 42 Total Protein 6.7 Albumin 3.3 Globulin 3.4 Albumin/Globulin Ratio 1.0 POD#6, doing well. Can go home after tolerates regular diet. CLFoster
[2016-12-25 11:40] VITALS: BP 110/69
== END 2016-12-25 12:05 | disposition home or self-care (01) | DRG 224 ==
LOC: AA 09:34 → SSU 16:35
PROVIDERS: ADMIT Surgery; ATTEND Surgery
PROC: 0WPF0JZ Removal of Synthetic Substitute from Abdominal Wall, Open Approach (ICD-10-PCS; 2016-12-19)
PROC: 0DNS0ZZ (ICD-10-PCS; principal; 2016-12-19 11:15)
DX: K66.0 Peritoneal adhesions (postprocedural) (postinfection) (principal); K56.7 Ileus, unspecified; E66.9 Obesity, unspecified; Z68.36 Body mass index [BMI] 36.0-36.9, adult; N28.1 Cyst of kidney, acquired; K21.9 Gastro-esophageal reflux disease without esophagitis; Z88.0 Allergy status to penicillin; Z88.8 Allergy status to other drugs, medicaments and biological substances; F17.200 Nicotine dependence, unspecified, uncomplicated; R20.0 Anesthesia of skin; D72.829 Elevated white blood cell count, unspecified; G43.909 Migraine, unspecified, not intractable, without status migrainosus
CPT/HCPCS: 36415; 74020; 80053; 83735; 85025; 94760; 94762; A9270-GY; J0330; J0690; J1100; J1170; J1200; J1644; J2060; J2250; J2270; J2300; J2405; J2704; J2795; J3010

== ENCOUNTER 2017-09-28 16:38 | Emergency (ER) | payer BC ==
[2017-09-28 18:19] VITALS: BP 126/71
--- NOTE | 2017-09-28 19:04 | RAD ---
HISTORY: Sore throat, respiratory symptoms COMPARISONS: June 15, 2016 VIEWS: 4: Frontal dual-energy and lateral views of the chest. FINDINGS: CARDIOMEDIASTINAL SILHOUETTE: The cardiomediastinal silhouette is normal. EBONI: The eboni are normal. PLEURA: The costophrenic angles are sharp. No pleural abnormalities are noted. LUNG PARENCHYMA: The lungs are clear. ABDOMEN: The upper abdomen is clear. There is no subphrenic gas. BONES AND SOFT TISSUES: No bone or soft tissue abnormalities are noted. OTHER: None. IMPRESSION: NO ACTIVE CARDIOPULMONARY DISEASE.
--- NOTE | 2017-10-09 08:30 | UC ---
Grecia Dinh Julia, scribed for Medhat Chang MD on 09/28/17 at 1854 . FLU HPI - HPI Summary HPI Summary: This patient is a 42 year old F presenting to [facility] accompanied by her son with a chief complaint of flu like symptoms for the past week. Patient reports fever cough, sinus pressure and sore throat. Patient denies nausea and vomiting. The patient rates the pain 8/10 in severity. Symptoms aggravated by nothing. Symptoms alleviated by nothing. She states her son had strep a few weeks ago. She has not taken any medication or sought out other medical care. - History of Current Complaint Chief Complaint: UCGeneralIllness Stated Complaint: sore throat Hx Obtained From: Patient Hx Last Menstrual Period: hysterectomy Onset/Duration: Lasting Weeks, Still Present Pain Intensity: 8 Pain Scale Used: 0-10 Numeric Associated Signs & Symptoms: Positive: Fever, Cough, Sore Throat, Nasal Congestion Related Hx: Possible Flu/Infectious Exposure, Smoking - Allergy/Home Medications Allergies/Adverse Reactions: Allergies Allergy/AdvReac Type Severity Reaction Status Date / Time ketorolac Allergy Swelling Verified 09/28/17 18:11 Of Face,Lips,& Throat NSAIDS (Non-Steroidal Allergy See Comment Verified 09/28/17 18:12 Anti-Inflamma tramadol Allergy Headache Verified 09/28/17 18:11 amoxicillin AdvReac See Comment Verified 09/28/17 18:11 Home Medications: Home Medications Acetaminophen [Acetaminophen Extra Strength] 1,500 mg PO ONCE 09/28/17 [History Confirmed 09/28/17] PMH/Surg Hx/FS Hx/Imm Hx Previously Healthy: Yes - Surgical History Surgical History: Yes Surgery Procedure, Year, and Place: 1991& 1998 [facility] [place]. 2007 HYSTERECTOMY RT [facility]. 1992 VENTRAL HERNIA REPAIR & ABLATION [facility]. 2009 HEATHER FUNDAPILLATION [facility] [place]. 2011 GASTRIC PERFORATION, [facility] [place] 2014 ADHESIONS REMOVED FROM ABDOMEN [facility] [place]. 2013 ABLATION RT [facility]. 2016 hernia repair with mesh insert - Family History Known Family History: Positive: Diabetes - Social History Alcohol Use: Rare Alcohol Amount: 2-3 PER MONTH Substance Use Type: None Smoking Status (MU): Heavy Every Day Tobacco Smoker Type: Cigarettes Amount Used/How Often: <1 PACK A DAY 20 YRS Have You Smoked in the Last Year: Yes Household Exposure Type: Cigarettes - Immunization History Most Recent Influenza Vaccination: 2008 Most Recent Tetanus Shot: Up to date Most Recent Pneumonia Vaccination: 2003 AT LEAST Review of Systems Constitutional: Fever ENT: Sore Throat, Sinus Congestion Respiratory: Cough Gastrointestinal: Negative All Other Systems Reviewed And Are Negative: Yes - Comments Additional Review of Systems Comments: Appearance: Well-appearing, Well-nourished Skin: Warm Respiratory: Clear to auscultation Cardiovascular: Normal S1, S2. No murmurs. Normal distal pulses in tibial and radial bilaterally. Psychiatric: Normal General: No acute distress Physical Exam Triage Information Reviewed: Yes Vital Signs: Initial Vital Signs Temp 98.1 F 09/28/17 18:14 Pulse 74 09/28/17 18:14 Resp 16 09/28/17 18:14 BP 126/71 09/28/17 18:14 Pulse Ox 100 09/28/17 18:14 Diagnostics - Radiology Cxr Radiology Interpretation Completed By: Radiologist - NO ACTIVE CARDIOPULMONARY DISEASE. ED Physician has reviewed this report. Flu Course/Dx - Differential Dx/Diagnosis Provider Diagnoses: pharyngitis Discharge - Discharge Plan Condition: Stable Disposition: HOME Patient Education Materials: Pharyngitis (ED) Forms: *Work Release Referrals: Iraida Robles NP [Primary Care Provider] - Additional Instructions: PLEASE KEEP YOURSELF WELL HYDRATED WITH SMALL AMOUNTS OF FLUID MORE FREQUENTLY THROUGHOUT THE DAY PLEASE SEEK MEDICAL ATTENTION IMMEDIATELY IF YOU HAVE ANY WORSENING OR CONCERNING SYMPTOMS PLEASE MAKE AN APPOINTMENT TO BE SEEN BY YOUR PRIMARY CARE DOCTOR WITHIN 1 WEE The documentation as recorded by the Grecia jordan Julia accurately reflects the service I personally performed and the decisions made by me, Medhat Chang MD.
== END 2017-09-28 20:10 | disposition home or self-care (01) ==
LOC: UCEAST 16:38
DX: J02.9 Acute pharyngitis, unspecified (principal); R05 Cough; R50.9 Fever, unspecified; R09.81 Nasal congestion; Z88.6 Allergy status to analgesic agent; Z88.1 Allergy status to other antibiotic agents; Z88.5 Allergy status to narcotic agent; F17.210 Nicotine dependence, cigarettes, uncomplicated
CPT/HCPCS: 71046; 87502; 87651; 99211; G0463

== ENCOUNTER 2017-12-23 09:26 | Emergency (ER) | payer BC ==
[2017-12-23 09:43] VITALS: BP 118/80
--- NOTE | 2017-12-23 10:21 | UC ---
Throat Pain/Nasal Wil HPI - HPI Summary HPI Summary: Pt presents with 1 week of sinus pain/pressure/congestion, left ear pain, and dry cough. This morning she had a lot of post nasal drip causing her to vomit. Also feels off balance today. Has not been taking anything OTC. Denies fever, chills, vision changes, SOB, chest pain, abdominal pain, diarrhea. She is still smoking daily. - History of Current Complaint Chief Complaint: UCGI Stated Complaint: VOMITING RESP ISSUE Time Seen by Provider: 12/23/17 10:05 Hx Obtained From: Patient Hx Last Menstrual Period: hysterectomy Onset/Duration: Gradual Onset Severity: Moderate Pain Intensity: 5 Pain Scale Used: 0-10 Numeric Cough: Nonproductive - Allergies/Home Medications Allergies/Adverse Reactions: Allergies Allergy/AdvReac Type Severity Reaction Status Date / Time ketorolac Allergy Swelling Verified 12/23/17 09:43 Of Face,Lips,& Throat NSAIDS (Non-Steroidal Allergy See Comment Verified 12/23/17 09:43 Anti-Inflamma tramadol Allergy Headache Verified 12/23/17 09:43 amoxicillin AdvReac See Comment Verified 12/23/17 09:43 Home Medications: Home Medications Dm/Acetaminophen/Doxylamine [Vicks Nyquil Cold & Flu N 15-6.25-325 mg] 1 cap PO 12/23/17 [History] Magnesium Hydroxide [Milk of Magnesia] 400 mg PO 12/23/17 [History] PMH/Surg Hx/FS Hx/Imm Hx GI/ History: Gastroesophageal Reflux - Surgical History Surgical History: Yes Surgery Procedure, Year, and Place: 1991& 1998 [facility] [place]. 2007 HYSTERECTOMY [facility]. 1992 VENTRAL HERNIA REPAIR & ABLATION ,[place]. 2009 HEATHER FUNDAPILLATION [facility] [place]. 2010 GASTRIC PERFORATION, [facility] [place]. 2014 ADHESIONS REMOVED FROM ABDOMEN [facility] [place]. 2013 ABLATION RT [facility]. 2016 hernia repair with mesh insert - Family History Known Family History: Positive: Diabetes - Social History Occupation: Unemployed Lives: With Family Alcohol Use: Occasionally Alcohol Amount: 2-3 PER MONTH Substance Use Type: None Smoking Status (MU): Heavy Every Day Tobacco Smoker Type: Cigarettes Amount Used/How Often: <1 PACK A DAY 20 YRS Have You Smoked in the Last Year: Yes Household Exposure Type: Cigarettes - Immunization History Most Recent Influenza Vaccination: 2008 Most Recent Tetanus Shot: Up to date Most Recent Pneumonia Vaccination: 2004 AT LEAST Review of Systems Constitutional: Negative Skin: Negative Eyes: Negative ENT: Ear Ache, Nasal Discharge, Sinus Congestion, Sinus Pain/Tenderness Respiratory: Cough Cardiovascular: Negative Gastrointestinal: Nausea Genitourinary: Negative Neurovascular: Negative Neurological: Negative Psychological: Negative All Other Systems Reviewed And Are Negative: Yes Physical Exam - Summary Physical Exam Summary: GENERAL: NAD. Mildly ill appearing. SKIN: No rashes, sores, lesions, or open wounds. HEENT: Head: AT/NC Eyes: EOM intact. Conjunctiva clear without inflammation or discharge. Ears: Hearing grossly normal. Left TM with mild erythema and bulging. No canal edema or drainage. Nose: Nasal mucosa mildly swollen and erythematous with yellow discharge. TTP maxillary and frontal sinus. Throat: Posterior oropharynx without exudates, erythema, or tonsillar enlargement. Uvula midline. NECK: Supple. Nontender. No lymphadenopathy. CHEST: CTAB. No r/r/w. No accessory muscle use. Breathing comfortably and in no distress. CV: RRR. Without m/r/g. Pulses intact. Brisk cap refill. ABDOMEN: Soft. NTTP. No distention or guarding. No organomegaly. No CVA tenderness. Bowel sounds present NEURO: Alert. CN II-XII grossly intact. PSYCH: Age appropriate behavior. Triage Information Reviewed: Yes Vital Signs: Initial Vital Signs Temp 97.0 F 12/23/17 09:40 Pulse 72 12/23/17 09:40 Resp 18 12/23/17 09:40 BP 118/80 12/23/17 09:40 Pulse Ox 100 12/23/17 09:40 Throat Pain/Nasal Course/Dx - Course Course Of Treatment: UA: trace blood and 1+ protein. Sinusitis and left OM. Pt says that she is not "allergic" to amoxicillin, it just causes her to get a yeast infection. Will rx for Augmentin. - Differential Dx/Diagnosis Provider Diagnoses: Sinusitis. Left Otitis media Discharge - Sign-Out/Discharge Documenting (check all that apply): Discharge/Admit/Transfer - Discharge Plan Condition: Stable Disposition: HOME Prescriptions: Amoxicillin/Clavulanate TAB* [Augmentin TAB 875*] 875 mg PO BID #20 tab Patient Education Materials: Sinusitis (ED) Referrals: Iraida Robles NP [Primary Care Provider] - Additional Instructions: If you develop a fever, shortness of breath, chest pain, new or worsening symptoms - please call your PCP or go to the ED. - Billing Disposition and Condition Condition: STABLE Disposition: HOME
== END 2017-12-23 10:42 | disposition home or self-care (01) ==
LOC: UCEAST 09:26
DX: J32.9 Chronic sinusitis, unspecified (principal); H66.92 Otitis media, unspecified, left ear; K21.9 Gastro-esophageal reflux disease without esophagitis; Z88.6 Allergy status to analgesic agent; Z88.5 Allergy status to narcotic agent; Z88.0 Allergy status to penicillin; F17.210 Nicotine dependence, cigarettes, uncomplicated
CPT/HCPCS: 81003; 99212; G0463

== ENCOUNTER 2018-02-10 15:54 | Emergency (ER) | payer BC ==
[2018-02-10 16:01] VITALS: BP 122/81
--- NOTE | 2018-02-10 16:28 | ED ---
Throat Pain/Nasal Congestion - HPI Summary HPI Summary: 42-year-old female presents with right ear pain for the past week. She also had sinus congestion for the past week. No fevers. She states she did ear infection a year ago. She denies any headache. States there is feeling eyes need to pop. She has been swimming recently. She denies any change in hearing. Denies any sore throat. She states that right side of her neck feels like is swollen. No chest pain shortness of breath. No cough. - History of Current Complaint Chief Complaint: UCEar Time Seen by Provider: 02/10/18 16:22 - Allergies/Home Medications Allergies/Adverse Reactions: Allergies Allergy/AdvReac Type Severity Reaction Status Date / Time ketorolac Allergy Swelling Verified 02/10/18 16:01 Of Face,Lips,& Throat NSAIDS (Non-Steroidal Allergy See Comment Verified 02/10/18 16:01 Anti-Inflamma tramadol Allergy Headache Verified 02/10/18 16:01 amoxicillin AdvReac See Comment Verified 02/10/18 16:01 PMH/Surg Hx/FS Hx/Imm Hx Endocrine/Hematology History: Reports: Hx Diabetes - Pre-DIABETIC, Hx Anemia - WITH Denies: Hx Systemic Lupus Erythematosus Cardiovascular History: Reports: 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 SURGERIES History: Reports: Hx Kidney Stones - Hx OF , PASSED ON OWN, NONE IN RECENT YEARS, Other Problems/Disorders Denies: Hx Dialysis, Hx Renal Disease Musculoskeletal History: Reports: Hx Arthritis - fingers Denies: Hx Rheumatoid Arthritis Sensory History: Reports: Hx Contacts or Glasses - CONTACTS, WILL WEAR GLASSES DAY OF SURGERY Denies: Hx Hearing Aid Opthamlomology History: Reports: Hx Contacts or Glasses - CONTACTS, WILL WEAR GLASSES DAY OF SURGERY Neurological History: Reports: Hx Migraine - Hx OF, EVERY FEW MONTHS - Cancer History Hx Chemotherapy: No - Surgical History Surgery Procedure, Year, and Place: 1991& 1998 [facility] [place]. 2007 HYSTERECTOMY RT [facility]. 1992 VENTRAL HERNIA REPAIR & ABLATION ,[place]. 2009 HEATHER FUNDAPILLATION [facility] [place]. 2010 GASTRIC PERFORATION, [facility] [place]. 2013 ADHESIONS REMOVED FROM ABDOMEN [facility] [place]. 2013 ABLATION RT [facility]. 2016 hernia repair with mesh insert Hx Anesthesia Reactions: No Infectious Disease History: No Infectious Disease History: Reports: Hx Shingles Denies: History Other Infectious Disease, Traveled Outside the in Last 30 Days - Family History Known Family History: Positive: Diabetes - Social History Alcohol Use: Occasionally Alcohol Amount: 2-3 PER MONTH Substance Use Type: Reports: None Smoking Status (MU): Heavy Every Day Tobacco Smoker Type: Cigarettes Amount Used/How Often: <1 PACK A DAY 20 YRS Have You Smoked in the Last Year: Yes Review of Systems Negative: Fever Positive: Ear Ache, Nasal Discharge Negative: Chest Pain Negative: Shortness Of Breath All Other Systems Reviewed And Are Negative: Yes Physical Exam Triage Information Reviewed: Yes Vital Signs On Initial Exam: Initial Vitals Temp Pulse Resp BP Pulse Ox 98.4 F 82 18 122/81 100 02/10/18 15:58 02/10/18 15:58 02/10/18 15:58 02/10/18 15:58 02/10/18 15:58 Vital Signs Reviewed: Yes Appearance: Positive: Well-Appearing Skin: Positive: Warm, Dry Head/Face: Positive: Normal Head/Face Inspection Eyes: Positive: Normal, EOMI, MCKENNA, Conjunctiva Clear ENT: Positive: Pharynx normal, Nasal congestion, TM bulging - right, TM red - right, Sinus tenderness Neck: Positive: Supple, Nontender, No Lymphadenopathy Respiratory/Lung Sounds: Positive: Clear to Auscultation, Breath Sounds Present Cardiovascular: Positive: Normal, RRR Abdomen Description: Positive: Nontender, Soft Bowel Sounds: Positive: Present Musculoskeletal: Positive: Normal Neurological: Positive: Normal Psychiatric: Positive: Normal Diagnostics - Vital Signs Vital Signs Temp Pulse Resp BP Pulse Ox 02/10/18 15:58 98.4 F 82 18 122/81 100 - Laboratory Lab Statement: Any lab studies that have been ordered have been reviewed, and results considered in the medical decision making process. EENT Course/Dx - Course Course Of Treatment: 42-year-old female presents with right ear pain for the past week. She also had sinus congestion for the past week. No fevers. She states she did ear infection a year ago. She denies any headache. States there is feeling eyes need to pop. She has been swimming recently. She denies any change in hearing. Denies any sore throat. She states that right side of her neck feels like is swollen. No chest pain shortness of breath. No cough. Exam right TM bulging and red. Sinus tenderness and present. Discussed patient can take Augmentin but gets yeast infections we'll give Diflucan. Patient understands and agrees with plan. - Differential Diagnoses Differential Diagnoses: Otitis Externa, Otitis Media, Sinusitis - Diagnoses Provider Diagnoses: Otitis media Discharge - Sign-Out/Discharge Documenting (check all that apply): Discharge/Admit/Transfer - Discharge Plan Condition: Good Disposition: HOME Prescriptions: Amoxicillin/Clavulanate TAB* [Augmentin TAB 875*] 875 mg PO BID #20 tab Fluconazole 150 MG (NF) [Diflucan 150 mg (NF)] 150 mg PO ONCE #2 tab Lactobacillus Acidophilus [Probiotic] 1 cap PO DAILY #10 cap Patient Education Materials: Ear Infection (ED) Referrals: Iraida Robles, [employer] REPRESENTATIVE [Primary Care Provider] - Additional Instructions: Take antibiotic twice a day for 10 days use diflucain once in develop yeast infection, if symptoms persist after 3 days take another tablet take probitic with antibiotic Take Tylenol or ibuprofen for pain every 6 hours Follow up with primary within 5 days Return to ED if develop any new or worsening symptoms - Billing Disposition and Condition Condition: GOOD Disposition: Home
== END 2018-02-10 16:38 | disposition home or self-care (01) ==
LOC: UCEAST 15:54
DX: H66.91 Otitis media, unspecified, right ear (principal); R09.81 Nasal congestion; F17.210 Nicotine dependence, cigarettes, uncomplicated; Z88.6 Allergy status to analgesic agent; Z88.5 Allergy status to narcotic agent; Z88.0 Allergy status to penicillin
CPT/HCPCS: 99212; G0463

== ENCOUNTER 2018-04-05 22:37 | Emergency (ER) | payer BC ==
[2018-04-05 23:19] LABS: ABS Basophils 0.1 10^3/ul (0-0.2); ABS Eosinophils 0.3 10^3/ul (0-0.6); ABS Lymphocytes 3.1 10^3/ul (1.0-4.8); ABS Monocytes 0.7 10^3/ul (0-0.8); ABS Neutrophils 6.8 10^3/ul (1.5-7.7); ABS Nucleated RBC 0 10^3/ul; Eosinophil % 2.4 % (0-6); Hematocrit 37 % (35-47); Hemoglobin 12.6 g/dl (12.0-16.0); Lymphocyte % 28.5 % (25-47); Mean Corpuscular HGB Conc 34 g/dl (31-36); Mean Corpuscular Hemoglobin 32 pg (27-31); Mean Corpuscular Volume 93 fL (80-97); Mean Platelet Volume 8.2 um3 (7.4-10.4); Nucleated Red Blood Cells % 0.1; Platelet Count 316 10^3/ul (150-450); Red Blood Count 3.99 10^6/ul (4.00-5.40); Red Cell Distribution Width 13 % (10.5-15)
[2018-04-05 23:27] LABS: EGFR Non-African American 55.1 (>60)
--- NOTE | 2018-04-06 00:19 | ED ---
HPI Chest Pain - HPI Summary HPI Summary: This is scribe Antonio Herring documenting for attending Mathew Helton MD. A 42 y/o female presents to ED c/o of chest pain/discomfort/pressure. Currently , her chest feels "off and funky", no pain or discomfort, "not too bad". Additional symptoms include lightheadedness and heaviness in arms/chest area. In the ED room, the patient has a pulse of 78 BPM, O2 saturation of 99% and blood pressure of 117/77. As per triage, "Pt c/o chest discomfort for several hours. States she has hx of SVT with ablations. Pt reports feeling dizzy and lightheaded". According to the patient, her heart "felt funky" tonight and has been experiencing chest pain/discomfort/pressure for the past 3 hours. She decided to come to ED because she felt she could progressively feel the symptoms getting worse. She is having trouble explaining how she is feeling. In an attempt to describe what she is feeling, she stated that she feels an extra electrical beat and excessive/rapid beating or skipping a beat. She noted that she had an ablation done twice with the last one done in 2012 or 2013 at [facility]. The first one was done at [facility] in [place] (which was SVT). No current medications. She did note that she was given medications (before ablation) but doesn't remember what they were. She decided not to take them because they make her feel "drunk". She was given life medication of Calcium, Magnesium and Zinc to regulate her heart beat and blood pressure, but after taking them for some time she quit taking them as she felt terrible. She has been drinking enough water as she always has a drink on hand (water or coffee) during work. Does not have lots of Caffeine as she drinks decaff or half-caff. PMHx of ablation, denies anxiety or panic attacks. Last routine visit with PCP was approximately 6 months ago at [place] with no EKG or blood work done. Possible EKG and blood work done 1 year ago. I, Dr. Helton, personally performed the services described in this documentation as scribed in my presence and it is both accurate and complete. - History of Current Complaint Chief Complaint: EDChestPainROMI Time Seen by Provider: 04/05/18 22:48 Hx Obtained From: Patient Hx Last Menstrual Period: hysterectomy Onset/Duration: Started Hours Ago, Still Present Timing: Constant Current Severity: None Pain Intensity: 0 Pain Scale Used: 0-10 Numeric Chest Pain Radiates: No Character: Fast, Heaviness, Pressure/Squeezing Aggravating Factor(s): Nothing Alleviating Factor(s): Nothing Associated Signs and Symptoms: Positive: Chest Pain, Dizziness, Lightheadedness , Other: - Heaviness in arms/chest. Negative: Fever - Additional Pertinent History Primary Care Physician: GENARO - Allergy/Home Medications Allergies/Adverse Reactions: Allergies Allergy/AdvReac Type Severity Reaction Status Date / Time ketorolac Allergy Swelling Verified 04/05/18 22:45 Of Face,Lips,& Throat NSAIDS (Non-Steroidal Allergy See Comment Verified 04/05/18 22:45 Anti-Inflamma tramadol Allergy Headache Verified 04/05/18 22:45 amoxicillin AdvReac See Comment Verified 04/05/18 22:45 PMH/Surg Hx/FS Hx/Imm Hx Endocrine/Hematology History: Reports: Hx Diabetes - Pre-DIABETIC, Hx Anemia - WITH Denies: Hx Systemic Lupus Erythematosus Cardiovascular History: Reports: 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 SURGERIES History: Reports: Hx Kidney Stones - Hx OF , PASSED ON OWN, NONE IN RECENT YEARS, Other Problems/Disorders Denies: Hx Dialysis, Hx Renal Disease Musculoskeletal History: Reports: Hx Arthritis - fingers Denies: Hx Rheumatoid Arthritis Sensory History: Reports: Hx Contacts or Glasses - CONTACTS, WILL WEAR GLASSES DAY OF SURGERY Denies: Hx Hearing Aid Opthamlomology History: Reports: Hx Contacts or Glasses - CONTACTS, WILL WEAR GLASSES DAY OF SURGERY Neurological History: Reports: Hx Migraine - Hx OF, EVERY FEW MONTHS - Cancer History Hx Chemotherapy: No - Surgical History Surgery Procedure, Year, and Place: 1991& 1998 [facility] [place]. 2007 HYSTERECTOMY RT [facility]. 1992 VENTRAL HERNIA REPAIR & ABLATION ,[place]. 2009 HEATHER FUNDAPILLATION [facility] [place]. 2010 GASTRIC PERFORATION, [facility] [place]. 2013 ADHESIONS REMOVED FROM ABDOMEN [facility] [place]. 2013 ABLATION RT [facility]. 2016 hernia repair with mesh insert Hx Anesthesia Reactions: No Infectious Disease History: No Infectious Disease History: Reports: Hx Shingles Denies: History Other Infectious Disease, Traveled Outside the in Last 30 Days - Family History Known Family History: Positive: Diabetes - Social History Alcohol Use: Occasionally Alcohol Amount: 2-3 PER MONTH Substance Use Type: Reports: None Smoking Status (MU): Heavy Every Day Tobacco Smoker Type: Cigarettes Amount Used/How Often: <1 PACK A DAY 20 YRS Have You Smoked in the Last Year: Yes Review of Systems Negative: Fever Positive: Chest Pain, Other - POSITIVE: "funky" heart beat Neurological: Other - POSITIVE: Lightheadedness, dizziness, heaviness in arms/ chest All Other Systems Reviewed And Are Negative: Yes Physical Exam - Summary Physical Exam Summary: VITAL SIGNS: Reviewed. GENERAL: Patient is a well-developed and nourished female who is lying comfortable in the stretcher. Patient is not in any acute respiratory distress. Normal exam. HEAD AND FACE: No signs of trauma. No ecchymosis, hematomas or skull depressions. No sinus tenderness. EYES: PERRLA, EOMI x 2, No injected conjunctiva, no nystagmus. EARS: Hearing grossly intact. Ear canals and tympanic membranes are within normal limits. MOUTH: Oropharynx within normal limits. NECK: Supple, trachea is midline, no adenopathy, no JVD, no carotid bruit, no c- spine tenderness, neck with full ROM. CHEST: Symmetric, no tenderness at palpation LUNGS: Clear to auscultation bilaterally. No wheezing or crackles. CVS: Regular rate and rhythm, S1 and S2 present, no murmurs or gallops appreciated. ABDOMEN: Soft, non-tender. No signs of distention. No rebound no guarding, and no masses palpated. Bowel sounds are normal. EXTREMITIES: FROM in all major joints, no edema, no cyanosis or clubbing. NEURO: Alert and oriented x 3. No acute neurological deficits. Speech is normal and follows commands. SKIN: Dry and warm Triage Information Reviewed: Yes Vital Signs On Initial Exam: Initial Vitals Temp Pulse Resp BP Pulse Ox 97.3 F 88 18 117/77 99 04/05/18 22:42 04/05/18 22:42 04/05/18 22:42 04/05/18 22:42 04/05/18 22:42 Vital Signs Reviewed: Yes Diagnostics - Vital Signs Vital Signs Temp Pulse Resp BP Pulse Ox 04/05/18 22:42 97.3 F 88 18 117/77 99 - Laboratory Lab Results: Lab Results 04/05/18 04/05/18 04/05/18 Range/Units 23:05 23:05 23:05 WBC 11.0 H (3.5-10.8) 10^3/ul RBC 3.99 L (4.00-5.40) 10^6/ul Hgb 12.6 (12.0-16.0) g/dl Hct 37 (35-47) % MCV 93 (80-97) fL MCH 32 H (27-31) pg MCHC 34 (31-36) g/dl RDW 13 (10.5-15) % Plt Count 316 (150-450) 10^3/ul MPV 8.2 (7.4-10.4) um3 Neut % (Auto) 61.7 (38-83) % Lymph % (Auto) 28.5 (25-47) % [place] % (Auto) 6.3 (0-7) % Eos % (Auto) 2.4 (0-6) % Baso % (Auto) 1.1 (0-2) % Absolute Neuts (auto) 6.8 (1.5-7.7) 10^3/ul Absolute Lymphs (auto) 3.1 (1.0-4.8) 10^3/ul Absolute Monos (auto) 0.7 (0-0.8) 10^3/ul Absolute Eos (auto) 0.3 (0-0.6) 10^3/ul Absolute Basos (auto) 0.1 (0-0.2) 10^3/ul Absolute Nucleated RBC 0 10^3/ul Nucleated RBC % 0.1 Sodium 136 (135-145) mmol/L Potassium 4.3 (3.5-5.0) mmol/L Chloride 105 (101-111) mmol/L Carbon Dioxide 26 (22-32) mmol/L Anion Gap 5 (2-11) mmol/L BUN 17 (6-24) mg/dL Creatinine 1.08 H (0.51-0.95) mg/dL Est GFR ( Amer) 66.7 (>60) Est GFR (Non-Af Amer) 55.1 (>60) BUN/Creatinine Ratio 15.7 (8-20) Glucose 103 H (70-100) mg/dL Lactic Acid 1.1 (0.5-2.0) mmol/L Calcium 9.6 (8.6-10.3) mg/dL Total Bilirubin 0.20 (0.2-1.0) mg/dL AST 23 (13-39) U/L ALT 15 (7-52) U/L Alkaline Phosphatase 70 (34-104) U/L Troponin I 0.00 (<0.04) ng/mL Total Protein 7.5 (6.4-8.9) g/dL Albumin 4.3 (3.2-5.2) g/dL Globulin 3.2 (2-4) g/dL Albumin/Globulin Ratio 1.3 (1-3) TSH 3.06 (0.34-5.60) mcIU/mL Result Diagrams: 04/05/18 23:05 04/05/18 23:05 Lab Statement: Any lab studies that have been ordered have been reviewed, and results considered in the medical decision making process. - Radiology CXR Radiology Interpretation Completed By: ED Physician - No acute process. Pending official report. - EKG 2239 Cardiac Rate: NL - 84 BPM EKG Rhythm: Sinus Rhythm EKG Interpretation: RBBB Chest Pain Course/Dx - Course Course Of Treatment: A 42 y/o female presents to ED c/o of chest pain/discomfort /pressure. Currently, her chest feels "off and funky", no pain or discomfort, "not too bad". Additional symptoms include lightheadedness and heaviness in arms /chest area. In the ED room, the patient has a pulse of 78 BPM, O2 saturation of 99% and blood pressure of 117/77. A CXR revealed no acute process. An EKG revealed NSR of 84 BPM and RBBB. In the ED course, the patient recieved no medications. Patient will be discharged with a diagnosis of palpitations. Patient is to follow up with PCP in 1-2 days. Patient is agreeable with this plan. - Diagnoses Provider Diagnoses: Palpitations Discharge - Sign-Out/Discharge Documenting (check all that apply): Patient Departure - DISCHARGE - Discharge Plan Condition: Stable Disposition: HOME Patient Education Materials: Chest Pain (ED), Heart Palpitations (ED) Forms: *Work Release Referrals: Iraida Robles, [employer] [Primary Care Provider] - 2 Days Additional Instructions: FOLLOW UP WITH PRIMARY CARE IN 1-2 DAYS. RETURN TO ED FOR ANY NEW OR WORSENING SYMPTOMS.
[2018-04-06 00:36] VITALS: BP 118/74
--- NOTE | 2018-04-06 07:43 | RAD ---
HISTORY: chest pain COMPARISONS: September 28, 2017 VIEWS: 1: frontal portable view of the chest at 10:50 PM FINDINGS: LINES AND TUBES: None. CARDIOMEDIASTINAL SILHOUETTE: The cardiomediastinal silhouette is normal for portable technique. PLEURA: The costophrenic angles are sharp. No pleural abnormalities are noted. LUNG PARENCHYMA: The lungs are clear. ABDOMEN: The upper abdomen is clear. There is no subphrenic gas. BONES AND SOFT TISSUES: No bone or soft tissue abnormalities are noted. IMPRESSION: NO ACTIVE CARDIOPULMONARY DISEASE. R0
== END 2018-04-06 00:35 | disposition home or self-care (01) ==
LOC: ED 22:37
DX: R00.2 Palpitations (principal); R42 Dizziness and giddiness; R07.9 Chest pain, unspecified; E11.9 Type 2 diabetes mellitus without complications; F17.210 Nicotine dependence, cigarettes, uncomplicated
CPT/HCPCS: 36415; 71045; 80053; 83605; 84443; 84484; 85025; 93005; 99282

== ENCOUNTER 2018-06-11 15:07 | Emergency (ER) | payer BC ==
[2018-06-11] MEDS ORDERED: NS 0.9% 1000 ML* 1,000 ML IV ONE (15:43)
[2018-06-11 16:05] LABS: ABS Basophils 0.1 10^3/ul (0-0.2); ABS Eosinophils 0.2 10^3/ul (0-0.6); ABS Lymphocytes 2.5 10^3/ul (1.0-4.8); ABS Monocytes 0.7 10^3/ul (0-0.8); ABS Neutrophils 5.5 10^3/ul (1.5-7.7); ABS Nucleated RBC 0 10^3/ul; Eosinophil % 1.8 % (0-6); Hematocrit 37 % (35-47); Hemoglobin 12.4 g/dl (12.0-16.0); Lymphocyte % 27.5 % (25-47); Mean Corpuscular HGB Conc 34 g/dl (31-36); Mean Corpuscular Hemoglobin 32 pg (27-31); Mean Corpuscular Volume 93 fL (80-97); Mean Platelet Volume 8.1 um3 (7.4-10.4); Nucleated Red Blood Cells % 0; Platelet Count 293 10^3/ul (150-450); Red Blood Count 3.94 10^6/ul (4.00-5.40); Red Cell Distribution Width 13 % (10.5-15); White Blood Count 8.9 10^3/ul (3.5-10.8)
[2018-06-11 16:17] LABS: INR 0.94 (0.77-1.02)
--- NOTE | 2018-06-11 16:23 | RAD ---
HISTORY: CP COMPARISONS: April 10, 2018 VIEWS: 1: frontal AP view of the chest at 4:02 PM FINDINGS: LINES AND TUBES: None. CARDIOMEDIASTINAL SILHOUETTE: The cardiomediastinal silhouette is normal for portable technique. PLEURA: The costophrenic angles are sharp. No pleural abnormalities are noted. LUNG PARENCHYMA: The lungs are clear. ABDOMEN: The upper abdomen is clear. There is no subphrenic gas. BONES AND SOFT TISSUES: No bone or soft tissue abnormalities are noted. IMPRESSION: NO ACTIVE CARDIOPULMONARY DISEASE.
[2018-06-11 16:30] LABS: EGFR Non-African American 66.3 (>60)
[2018-06-11 18:12] LABS: Urine Appearance Clear; Urine Blood 1+ (Negative); Urine Color Yellow; Urine Ketones Negative (Negative); Urine Protein Negative (Negative); Urine Red Blood Cell Absent (Absent); Urine Specific Gravity 1.021 (1.010-1.030); Urine Urobilinogen Negative (Negative); Urine White Blood Cell Trace(0-5/hpf) (Absent)
--- NOTE | 2018-06-11 18:52 | ED ---
Dizziness - HPI Summary HPI Summary: Patient is a 42 y/o F w/ c/o intermittent palpitations and dizziness throughout today. In the room, she denies chest pain. Some nausea, light-headedness is noted, no urinary Sx. PMHx of WPW syndrome, SVT. PSHx of ablation at age 19, reports unsuccessful ablation a few years ago. Patient is on metoprolol, platform attendant is Dr. Salazar. PSHx of x9 abdominal surgeries, x2 , hysterectomy. PMHx of GERD, sleep apnea, pre-diabetic. Smokes 3/4 to 1 pack daily. On triage, pain is denied, nothing is noted to aggravate/alleviate Sx. Home medications and allergies are reviewed. - History Of Current Complaint Chief Complaint: EDChestPainROMI Stated Complaint: CHEST TIGHTNESS/LIGHT HEADED Time Seen by Provider: 06/11/18 15:17 Hx Obtained From: Patient Onset/Duration: Still Present - nausea, light-headedness, Resolved - palpitations at the moment Timing: Intermittent Episode Lasting Severity Currently: None Character: Lightheaded, Dizzy Aggravating Factor(s): Nothing Alleviating Factor(s): Nothing Associated Signs And Symptoms: Positive: Nausea, Palpitations, Other: - POSITIVE : dizziness/light-headedness NEGATIVE: urinary Sx. 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 SURGERIES History: Reports: Hx Kidney Stones - Hx OF , PASSED ON OWN, NONE IN RECENT YEARS, Other Problems/Disorders Denies: Hx Dialysis, Hx Renal Disease Musculoskeletal History: Reports: Hx Arthritis - fingers Denies: Hx Rheumatoid Arthritis Sensory History: Reports: Hx Contacts or Glasses - CONTACTS, WILL WEAR GLASSES DAY OF SURGERY Denies: Hx Hearing Aid Opthamlomology History: Reports: Hx Contacts or Glasses - CONTACTS, WILL WEAR GLASSES DAY OF SURGERY Neurological History: Reports: Hx Migraine - Hx OF, EVERY FEW MONTHS - Cancer History Hx Chemotherapy: No - Surgical History Surgery Procedure, Year, and Place: 1991& 1998 [facility] [place]. 2007 HYSTERECTOMY [facility]. 1992 VENTRAL HERNIA REPAIR & ABLATION ,[place]. 2009 HEATHER FUNDAPILLATION [facility] [place] 2010 GASTRIC PERFORATION, [facility] [place]. 2013 ADHESIONS REMOVED FROM ABDOMEN [facility] [place]. 2013 ABLATION RT [facility]. 2016 hernia repair with mesh insert Hx Anesthesia Reactions: No - Immunization History Date of Influenza Vaccine: 2018 Immunizations Up to Date: Yes Infectious Disease History: No Infectious Disease History: Reports: Hx Shingles Denies: History Other Infectious Disease, Traveled Outside the in Last 30 Days - Family History Known Family History: Positive: Diabetes - Social History Alcohol Use: Rare Alcohol Amount: "maybe once every few weeks I'll have a glass of wine" Substance Use Type: Reports: None Smoking Status (MU): Heavy Every Day Tobacco Smoker Type: Cigarettes Amount Used/How Often: <1 PACK A DAY 20 YRS Have You Smoked in the Last Year: Yes Review of Systems Positive: Palpitations. Negative: Chest Pain Positive: Nausea Genitourinary: Other - NEGATIVE: urinary Sx Neurological: Other - dizziness/lightheadedness All Other Systems Reviewed And Are Negative: Yes Physical Exam - Summary Physical Exam Summary: GENERAL: Patient is a well-developed and nourished female who is lying comfortable in the stretcher. Patient is not in any acute respiratory distress. HEAD AND FACE: Normocephalic EYES: PERRLA, EOMI x 2. EARS: Hearing grossly intact. MOUTH: Oropharynx within normal limits. NECK: Supple, trachea is midline, no adenopathy, no JVD, no carotid bruit. CHEST: Symmetric, no tenderness at palpation LUNGS: Clear to auscultation bilaterally. No wheezing or crackles. CVS: Regular rate and rhythm, S1 and S2 present, no murmurs or gallops appreciated. ABDOMEN: Soft, non-tender. Bowel sounds are normal. No abdominal abnormal pulsations. EXTREMITIES: Full ROM in all major joints, no edema, no cyanosis or clubbing. NEURO: Alert and oriented x 3. No acute neurological deficits. Speech is normal and follows commands. SKIN: Dry and warm Triage Information Reviewed: Yes Vital Signs On Initial Exam: Initial Vitals Temp Pulse Resp BP Pulse Ox 98.2 F 78 18 115/87 95 06/11/18 15:10 06/11/18 15:10 06/11/18 15:10 06/11/18 15:10 06/11/18 15:10 Vital Signs Reviewed: Yes Diagnostics - Vital Signs Vital Signs Temp Pulse Resp BP Pulse Ox 06/11/18 16:32 80 21 109/74 97 06/11/18 16:02 75 20 139/69 99 06/11/18 16:00 72 26 99 06/11/18 15:56 72 19 112/71 99 06/11/18 15:50 75 16 112/71 99 06/11/18 15:33 76 27 116/76 98 06/11/18 15:31 81 24 98 06/11/18 15:10 98.2 F 78 18 115/87 95 - Laboratory Lab Results: Lab Results 06/11/18 06/11/18 06/11/18 Range/Units 15:54 15:54 15:54 WBC 8.9 (3.5-10.8) 10^3/ul RBC 3.94 L (4.00-5.40) 10^6/ul Hgb 12.4 (12.0-16.0) g/dl Hct 37 (35-47) % MCV 93 (80-97) fL MCH 32 H (27-31) pg MCHC 34 (31-36) g/dl RDW 13 (10.5-15) % Plt Count 293 (150-450) 10^3/ul MPV 8.1 (7.4-10.4) um3 Neut % (Auto) 61.7 (38-83) % Lymph % (Auto) 27.5 (25-47) % [place] % (Auto) 8.0 H (0-7) % Eos % (Auto) 1.8 (0-6) % Baso % (Auto) 1.0 (0-2) % Absolute Neuts (auto) 5.5 (1.5-7.7) 10^3/ul Absolute Lymphs (auto) 2.5 (1.0-4.8) 10^3/ul Absolute Monos (auto) 0.7 (0-0.8) 10^3/ul Absolute Eos (auto) 0.2 (0-0.6) 10^3/ul Absolute Basos (auto) 0.1 (0-0.2) 10^3/ul Absolute Nucleated RBC 0 10^3/ul Nucleated RBC % 0 INR (Anticoag Therapy) (0.77-1.02) APTT (26.0-36.3) seconds D-Dimer, Quantitative (Less Than 230) ng/mL Sodium 137 (135-145) mmol/L Potassium 4.1 (3.5-5.0) mmol/L Chloride 107 (101-111) mmol/L Carbon Dioxide 24 (22-32) mmol/L Anion Gap 6 (2-11) mmol/L BUN 19 (6-24) mg/dL Creatinine 0.92 (0.51-0.95) mg/dL Est GFR ( Amer) 80.2 (>60) Est GFR (Non-Af Amer) 66.3 (>60) BUN/Creatinine Ratio 20.7 H (8-20) Glucose 113 H (70-100) mg/dL Lactic Acid 1.0 (0.5-2.0) mmol/L Calcium 9.3 (8.6-10.3) mg/dL Magnesium 2.0 (1.9-2.7) mg/dL Total Bilirubin 0.20 (0.2-1.0) mg/dL AST 15 (13-39) U/L ALT 13 (7-52) U/L Alkaline Phosphatase 55 (34-104) U/L Troponin I 0.00 (<0.04) ng/mL B-Natriuretic Peptide ( - 100) pg/mL Total Protein 7.3 (6.4-8.9) g/dL Albumin 4.0 (3.2-5.2) g/dL Globulin 3.3 (2-4) g/dL Albumin/Globulin Ratio 1.2 (1-3) TSH 2.68 (0.34-5.60) mcIU/mL Thyroxine (T4) 9.07 (6.09-12.23) mcg/mL Urine Color Urine Appearance Urine pH (5-9) Ur Specific [place] (1.010-1.030) Urine Protein (Negative) Urine Ketones (Negative) Urine Blood (Negative) Urine Nitrate (Negative) Urine Bilirubin (Negative) Urine Urobilinogen (Negative) Ur Leukocyte Esterase (Negative) Urine WBC (Auto) (Absent) Urine RBC (Auto) (Absent) Ur Squamous Epith Cells (Absent) Urine Bacteria (Absent) Urine Glucose (Negative) 06/11/18 06/11/18 06/11/18 Range/Units 15:54 15:54 17:52 WBC (3.5-10.8) 10^3/ul RBC (4.00-5.40) 10^6/ul Hgb (12.0-16.0) g/dl Hct (35-47) % MCV (80-97) fL MCH (27-31) pg MCHC (31-36) g/dl RDW (10.5-15) % Plt Count (150-450) 10^3/ul MPV (7.4-10.4) um3 Neut % (Auto) (38-83) % Lymph % (Auto) (25-47) % [place] % (Auto) (0-7) % Eos % (Auto) (0-6) % Baso % (Auto) (0-2) % Absolute Neuts (auto) (1.5-7.7) 10^3/ul Absolute Lymphs (auto) (1.0-4.8) 10^3/ul Absolute Monos (auto) (0-0.8) 10^3/ul Absolute Eos (auto) (0-0.6) 10^3/ul Absolute Basos (auto) (0-0.2) 10^3/ul Absolute Nucleated RBC 10^3/ul Nucleated RBC % INR (Anticoag Therapy) 0.94 (0.77-1.02) APTT 33.9 (26.0-36.3) seconds D-Dimer, Quantitative < 200 (Less Than 230) ng/mL Sodium (135-145) mmol/L Potassium (3.5-5.0) mmol/L Chloride (101-111) mmol/L Carbon Dioxide (22-32) mmol/L Anion Gap (2-11) mmol/L BUN (6-24) mg/dL Creatinine (0.51-0.95) mg/dL Est GFR ( Amer) (>60) Est GFR (Non-Af Amer) (>60) BUN/Creatinine Ratio (8-20) Glucose (70-100) mg/dL Lactic Acid (0.5-2.0) mmol/L Calcium (8.6-10.3) mg/dL Magnesium (1.9-2.7) mg/dL Total Bilirubin (0.2-1.0) mg/dL AST (13-39) U/L ALT (7-52) U/L Alkaline Phosphatase (34-104) U/L Troponin I (<0.04) ng/mL B-Natriuretic Peptide 92 ( - 100) pg/mL Total Protein (6.4-8.9) g/dL Albumin (3.2-5.2) g/dL Globulin (2-4) g/dL Albumin/Globulin Ratio (1-3) TSH (0.34-5.60) mcIU/mL Thyroxine (T4) (6.09-12.23) mcg/mL Urine Color Yellow Urine Appearance Clear Urine pH 6.0 (5-9) Ur Specific [place] 1.021 (1.010-1.030) Urine Protein Negative (Negative) Urine Ketones Negative (Negative) Urine Blood 1+ A (Negative) Urine Nitrate Negative (Negative) Urine Bilirubin Negative (Negative) Urine Urobilinogen Negative (Negative) Ur Leukocyte Esterase Negative (Negative) Urine WBC (Auto) Trace(0-5/hpf) (Absent) Urine RBC (Auto) Absent (Absent) Ur Squamous Epith Cells Present A (Absent) Urine Bacteria Absent (Absent) Urine Glucose Negative (Negative) Result Diagrams: 06/11/18 15:54 06/11/18 15:54 Lab Statement: Any lab studies that have been ordered have been reviewed, and results considered in the medical decision making process. - Radiology CXR Xray Interpretation: No Acute Changes Radiology Interpretation Completed By: ED Physician - no active cardiopulmonary disease, this report reviewed by ed physician. - EKG 1530 Cardiac Rate: NL - rate of 78 bpm EKG Rhythm: Sinus Rhythm EKG Interpretation: RBBB, short ME Re-Evaluation - Re-Evaluation First Eval Re-Evaluation Time: 17:18 Comment: Discussed admission of patient, she is agreeable Second Eval Re-Evaluation Time: 17:33 Comment: Reviewed patient with Dr. Matthews who feels patient can follow up outpatient. Upon further investigation, patient states that she saw her platform attendant less than one month ago who did an ECHO and stress test and she is suppose to follow up with him in 10 days to discussed the results. Patient reports feeling better. Patient is hemodynamically stable and safe for discharge. Strict return precautions given and patient will otherwise follow up with platform attendant Dizzy Course/Dx - Course Course Of Treatment: Patient is a 42 y/o F w/ c/o intermittent palpitations and dizziness throughout today. In the room, she denies chest pain. Some nausea, light-headedness is noted, no urinary Sx. PMHx of WPW syndrome, SVT. PSHx of ablation at age 19, reports unsuccessful ablation a few years ago. Patient is on metoprolol, platform attendant is Dr. Salazar. Physical exam was unremarkable. During ED course, patient was given fluids. CXR showed no active cardiopulmonary disease, EKG showed sinus rhythm w/ 78 BPM, RBBB, short ME. Labs showed d-dimer <200, TSH 2.68, T4 9.07, lactic acid 1, glucose 113. Both troponins were negative. UA showed urine blood 1+, trace WBC, squamous epith cells present, absent bacteria, negative glucose. 1728 - Patient's case discussed with Dr. Matthews, Dr. Matthews does not think admission is appropriate for patient. Reviewed patient with Dr. Matthews who feels patient can follow up outpatient. Upon further investigation, patient states that she saw her platform attendant less than one month ago who did an ECHO and stress test and she is suppose to follow up with him in 10 days to discussed the results. Patient reports feeling better. Patient is hemodynamically stable and safe for discharge. Strict return precautions given and patient will otherwise follow up with platform attendant .DDx of palpitations. - Diagnoses Provider Diagnoses: Palpitations - Provider Notifications Discussed Care Of Patient With: Abraham Matthews Time Discussed With Above Provider: 17:28 Instructed by Provider To: Other - 1728 - Patient's case discussed with Dr. Matthews, Dr. Matthews does not think admission is appropriate for patient. Discharge - Sign-Out/Discharge Documenting (check all that apply): Patient Departure - discharge - Discharge Plan Condition: Stable Disposition: HOME Patient Education Materials: Heart Palpitations (ED) Referrals: Fred Salazar MD [Medical Doctor] - 3 Days Additional Instructions: Follow up with your platform attendant, Dr. Salazar, in 1-3 days. RETURN TO THE EMERGENCY DEPARTMENT FOR CHANGING OR WORSENING SYMPTOMS. - Billing Disposition and Condition Condition: STABLE Disposition: Home - Attestation Statements Document Initiated by Malibe: Yes Documenting Scribe: Prince Spears Provider For Whom Sandeepe is Documenting (Include Credential): Padmini Bird MD Scribe Attestation: Prince Dinh , scribed for Padmini Bird MD on 06/11/18 at 2131. Scribe Documentation Reviewed: Yes Provider Attestation: The documentation as recorded by the scribPrince burton accurately reflects the service I personally performed and the decisions made by me, Padmini Bird MD
[2018-06-11 19:07] VITALS: BP 118/77
== END 2018-06-11 19:05 | disposition home or self-care (01) ==
LOC: ED 15:07
DX: R00.2 Palpitations (principal); Z88.6 Allergy status to analgesic agent; Z88.1 Allergy status to other antibiotic agents; K21.9 Gastro-esophageal reflux disease without esophagitis; G47.30 Sleep apnea, unspecified; R73.03 Prediabetes; F17.210 Nicotine dependence, cigarettes, uncomplicated
CPT/HCPCS: 36415; 71045; 80053; 81003; 81015; 83605; 83735; 83880; 84436; 84443; 84484; 85025; 85379; 85610; 85730; 87086; 93005; 96360; 99283

== ENCOUNTER 2018-08-24 23:05 | Emergency (ER) | payer BC ==
--- OUTSIDE RECORDS SUMMARY | 2018-08-24 23:22 | XMS REPORT ---
:1975 External Reference #:[id number] Author Organization [facility] Address [address] [place] [address] Phone [phone] Care Team Providers Name Role Phone Yusuf Ayala MD Care Team Information [employer] Unavailable Yusuf Ayala MD Primary Care Physician Unavailable Payers Type Date Identification Numbers Payment Provider Subscriber Commercial Effective: Policy Number: [id number] BC/BS Of [employer] Donna Parmar 2018 PayID: [id number] [address] [place] [address] Problems Description No Information Family History Date Family Member(s) Problem(s) Comments Father Diabetes Mellitus, II Father due to AR () Father Hypertension Mother 64 Mother AR Mother Arthritis First Brother 45 First Brother No Current Problems First Sister 43 First Sister No Current Problems Social History Type Date Description Comments 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 Employment ETOH Use Currently consumes alcohol Smoking Light tobacco smoker (10 or fewer cigarettes/day) Allergies, Adverse Reactions, Alerts Date Description Reaction Status Severity Comments 04/10/2018 NSAIDs gastric preforation in active past 04/10/2018 Tramadol active 04/10/2018 Ketorolac Tromethamine active 04/10/2018 Amoxicillin ineffective active Medications Medication Date Status Form Strength Qnty SIG Indications Ordering Provider Bupropion HCL Active Tablets ER 150mg 60tabs take one Yusuf TLinda ER (SR) 018 12HR tablet Jamie by mouth MD twice a day Milk Of Active Suspension qd Unknown Magnesia 000 Carafate Active Tablets 1gm take 1 Unknown 000 tablet by mouth bid Omeprazole Active Capsules DR 40mg 1 by Unknown 000 mouth bid Metoprolol Active Tablets ER 25mg 1 by Unknown Succinate ER 000 24HR mouth every day Vital Signs Date Vital Result Comment 07/28/2018 BP Systolic 110 mmHg BP Diastolic 78 mmHg Heart Rate 72 /min Body Temperature 98.1 F Respiratory Rate 16 /min Height 62.75 inches 5'2.75" Weight 214.38 lb BMI (Body Mass Index) 38.3 kg/m2 04/10/2018 BP Systolic 104 mmHg BP Diastolic 60 mmHg Heart Rate 78 /min Body Temperature 98.1 F Respiratory Rate 16 /min Height 62.75 inches 5'2.75" Weight 194.50 lb BMI (Body Mass Index) 34.7 kg/m2 Results Description No Information Procedures Description No Information Encounters Type Date Location Provider CPT E/M Dx Office Visit 04/10/2018 11:00a [place] [address] R07.89 F17.210 Plan of Care 07/28/2018 - Yusuf Ayala MDI47.1 Supraventricular [id number] Nicotine dependence, cigarettes, uncomplicatedAllNew Medication:Bupropion HCL ER (SR) 150 mgComments:~B_~U_Medication Management~b_~u_ Patient Understands medications she's taking? Yes No Are there Barriers to Adherence? Yes No Has the patient been asked about herbal supplements and therapies, and OTC meds? Yes No
[2018-08-24] MEDS ORDERED: DOXYcycline CAP(*) 100 MG PO ONE (23:31)
--- NOTE | 2018-08-24 23:37 | ED ---
Throat Pain/Nasal Congestion - HPI Summary HPI Summary: Pt. is a 43 y.o female who presents to the ER for sinus pain and congestion, cough and sore throat x several days. Pt. states she has a hx of sinus infections that typically lead to bacterial infections. She denies fever, CP, SOB, abd. pain, N/V. Symptoms are mild in severity. No current modifying factors. - History of Current Complaint Chief Complaint: EDUpperRespComplaint Time Seen by Provider: 08/24/18 23:30 Hx Obtained From: Patient - Allergies/Home Medications Allergies/Adverse Reactions: Allergies Allergy/AdvReac Type Severity Reaction Status Date / Time ketorolac Allergy Swelling Verified 08/24/18 23:11 Of Face,Lips,& Throat NSAIDS (Non-Steroidal Allergy See Comment Verified 08/24/18 23:11 Anti-Inflamma tramadol Allergy Headache Verified 08/24/18 23:11 amoxicillin AdvReac See Comment Verified 08/24/18 23:11 PMH/Surg Hx/FS Hx/Imm Hx Previously Healthy: Yes Endocrine/Hematology History: Reports: Hx Diabetes - Pre-DIABETIC, Hx Anemia - WITH Denies: Hx Systemic Lupus Erythematosus Cardiovascular History: Reports: 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 SURGERIES History: Reports: Hx Kidney Stones - Hx OF , PASSED ON OWN, NONE IN RECENT YEARS, Other Problems/Disorders Denies: Hx Dialysis, Hx Renal Disease Musculoskeletal History: Reports: Hx Arthritis - fingers Denies: Hx Rheumatoid Arthritis Sensory History: Reports: Hx Contacts or Glasses - CONTACTS, WILL WEAR GLASSES DAY OF SURGERY Denies: Hx Hearing Aid Opthamlomology History: Reports: Hx Contacts or Glasses - CONTACTS, WILL WEAR GLASSES DAY OF SURGERY Neurological History: Reports: Hx Migraine - Hx OF, EVERY FEW MONTHS - Cancer History Hx Chemotherapy: No - Surgical History Surgery Procedure, Year, and Place: 1992& 1998 [facility] [place]. 2008 HYSTERECTOMY RT [facility]. 1992 VENTRAL HERNIA REPAIR & ABLATION [place]. 2009 HEATHER FUNDAPILLATION [facility] [place]. 2010 GASTRIC PERFORATION, [facility] [place]. 2013 ADHESIONS REMOVED FROM ABDOMEN [facility] [place]. 2013 ABLATION RT [facility]. 2016 hernia repair with mesh insert Hx Anesthesia Reactions: No - Immunization History Date of Influenza Vaccine: 2018 Infectious Disease History: No Infectious Disease History: Reports: Hx Shingles Denies: History Other Infectious Disease, Traveled Outside the in Last 30 Days - Family History Known Family History: Positive: Diabetes, Non-Contributory - Social History Occupation: Employed Full-time Lives: With Family Alcohol Use: Rare Alcohol Amount: "maybe once every few weeks I'll have a glass of wine" Substance Use Type: Reports: None Smoking Status (MU): Heavy Every Day Tobacco Smoker Type: Cigarettes Amount Used/How Often: <1 PACK A DAY 20 YRS Have You Smoked in the Last Year: Yes Review of Systems Constitutional: Negative Eyes: Negative Positive: Sore Throat, Nasal Discharge Cardiovascular: Negative Positive: Cough. Negative: Shortness Of Breath Gastrointestinal: Negative Musculoskeletal: Negative Skin: Negative Positive: Headache All Other Systems Reviewed And Are Negative: Yes Physical Exam Triage Information Reviewed: Yes Vital Signs On Initial Exam: Initial Vitals Temp Pulse Resp BP Pulse Ox 98.5 F 80 16 124/83 97 08/24/18 23:08 08/24/18 23:08 08/24/18 23:08 08/24/18 23:08 08/24/18 23:08 Vital Signs Reviewed: Yes Appearance: Positive: Well-Appearing - Pt. sitting in chair in NAD> Appears to feel unwell but nontoxic. Skin: Positive: Warm, Dry Head/Face: Positive: Normal Head/Face Inspection, Other - Dark circles under eyes. ENT: Positive: Pharyngeal erythema, TMs normal, Sinus tenderness - Marked tenderness over maxillary sinuses.. Negative: Tonsillar swelling, Tonsillar exudate Neck: Positive: Supple, Nontender Respiratory/Lung Sounds: Positive: Clear to Auscultation, Breath Sounds Present Cardiovascular: Positive: Normal, RRR Musculoskeletal: Positive: Normal Neurological: Positive: Normal, CN Intact II-III Psychiatric: Positive: Affect/Mood Appropriate Diagnostics - Vital Signs Vital Signs Temp Pulse Resp BP Pulse Ox 08/24/18 23:08 98.5 F 80 16 124/83 97 - Laboratory Lab Statement: Any lab studies that have been ordered have been reviewed, and results considered in the medical decision making process. EENT Course/Dx - Course Course Of Treatment: Pt. presenting with sinusitis. Afebrile and well appearing. Pt. requesting tx with antibx stating she has needed one in the past for same sxs. Allergic to amoxicillin. Will start doxycycline and flonase. Advised to increase fluids and rest. NSAIDS for pain as directed. F.u with PCP and return to ER if sxs change or worsen. - Differential Diagnoses Differential Diagnoses: Mastoiditis, Otitis Media, Peritonsillar Ulcer, Pharyngitis, Sinusitis, URI/Bronchitis - Diagnoses Provider Diagnoses: Sinusitis Discharge - Sign-Out/Discharge Documenting (check all that apply): Patient Departure - Discharge Plan Condition: Good Disposition: HOME Prescriptions: DOXYcycline CAP(*) [DOXYcycline 100MG CAP(*)] 100 mg PO DAILY #20 cap Fluconazole 150 MG TAB* [Diflucan 150 MG TAB*] 150 mg PO ONCE #2 tablet Fluticasone NASAL SPRAY 50MCG* [Flonase NASAL SPRAY 50MCG*] 2 spray BOTH NARES DAILY #1 btl Patient Education Materials: Sinusitis (ED) Referrals: Ira[facility] Robles, [facility] [Primary Care Provider] - Additional Instructions: Follow up with PCP Take medication as directed Can also take tylenol for pain as directed Increase fluids and rest Return to ER if symptoms change or worsen - Billing Disposition and Condition Condition: GOOD Disposition: Home
[2018-08-24 23:51] VITALS: BP 122/52
== END 2018-08-24 23:49 | disposition home or self-care (01) ==
LOC: ED 23:05
DX: J32.9 Chronic sinusitis, unspecified (principal); K21.9 Gastro-esophageal reflux disease without esophagitis; Z88.6 Allergy status to analgesic agent; Z88.5 Allergy status to narcotic agent; Z88.0 Allergy status to penicillin; F17.210 Nicotine dependence, cigarettes, uncomplicated
CPT/HCPCS: 99281; A9270-GY

== ENCOUNTER 2018-08-29 13:04 | Emergency (ER) | payer BC ==
--- NOTE | 2018-08-29 13:20 | ED ---
Palpitations / Dysrhythmia - HPI Summary HPI Summary: This patient is a 43 year old F presenting to [facility] with a chief complaint of heart palpitations since 09:00. The patient rates the pain 5/10 in severity. Patient reports non-radiating CP, dizziness, and diaphoresis. Patient denies nausea or vomiting. PMHX SVT. RX Metropolol 25 mg daily. - History of Current Complaint Chief Complaint: EDDysrhythmPalp Time Seen by Provider: 08/29/18 13:09 Hx Obtained From: Patient Onset/Duration: Sudden Onset, Lasting Hours - 4 Character: Pounding Associated Signs & Symptoms: Dizzy, Chest Pain, Diaphoresis - Allergy/Home Medications Allergies/Adverse Reactions: Allergies Allergy/AdvReac Type Severity Reaction Status Date / Time ketorolac Allergy Swelling Verified 08/24/18 23:11 Of Face,Lips,& Throat NSAIDS (Non-Steroidal Allergy See Comment Verified 08/24/18 23:11 Anti-Inflamma tramadol Allergy Headache Verified 08/24/18 23:11 amoxicillin AdvReac See Comment Verified 08/24/18 23:11 PMH/Surg Hx/FS Hx/Imm Hx Endocrine/Hematology History: Reports: Hx Diabetes - Pre-DIABETIC, Hx Anemia - WITH Denies: Hx Systemic Lupus Erythematosus Cardiovascular History: Reports: 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 SURGERIES History: Reports: Hx Kidney Stones - Hx OF , PASSED ON OWN, NONE IN RECENT YEARS, Other Problems/Disorders Denies: Hx Dialysis, Hx Renal Disease Musculoskeletal History: Reports: Hx Arthritis - fingers Denies: Hx Rheumatoid Arthritis Sensory History: Reports: Hx Contacts or Glasses - CONTACTS, WILL WEAR GLASSES DAY OF SURGERY Denies: Hx Hearing Aid Opthamlomology History: Reports: Hx Contacts or Glasses - CONTACTS, WILL WEAR GLASSES DAY OF SURGERY Neurological History: Reports: Hx Migraine - Hx OF, EVERY FEW MONTHS - Cancer History Hx Chemotherapy: No - Surgical History Surgery Procedure, Year, and Place: 1992& 1998 [facility] [place]. 2007 HYSTERECTOMY RT [facility]. 1992 VENTRAL HERNIA REPAIR & ABLATION ,[place]. 2009 HEATHER FUNDAPILLATION [facility] [place]. 2010 GASTRIC PERFORATION, [facility] [place]. 2013 ADHESIONS REMOVED FROM ABDOMEN [facility] [place]. 2013 ABLATION RT [facility]. 2016 hernia repair with mesh insert Hx Anesthesia Reactions: No - Immunization History Date of Influenza Vaccine: 2018 Infectious Disease History: No Infectious Disease History: Reports: Hx Shingles Denies: History Other Infectious Disease, Traveled Outside the in Last 30 Days - Family History Known Family History: Positive: Diabetes - Social History Alcohol Use: None Alcohol Amount: "maybe once every few weeks I'll have a glass of wine" Substance Use Type: Reports: None Smoking Status (MU): Heavy Every Day Tobacco Smoker Type: Cigarettes Amount Used/How Often: <1 PACK A DAY 20 YRS Have You Smoked in the Last Year: Yes Review of Systems Positive: Palpitations, Chest Pain Negative: Vomiting, Nausea Neurological: Other - dizziness All Other Systems Reviewed And Are Negative: Yes Physical Exam - Summary Physical Exam Summary: VITAL SIGNS: Reviewed. GENERAL: Patient is a well-developed and nourished female who is lying comfortable in the stretcher. Patient is not in any acute respiratory distress. HEAD AND FACE: No signs of trauma. No ecchymosis, hematomas or skull depressions. No sinus tenderness. EYES: PERRLA, EOMI x 2, No injected conjunctiva, no nystagmus. EARS: Hearing grossly intact. Ear canals and tympanic membranes are within normal limits. MOUTH: Oropharynx within normal limits. NECK: Supple, trachea is midline, no adenopathy, no JVD, no carotid bruit, no c- spine tenderness, neck with full ROM. CHEST: Symmetric, no tenderness at palpation LUNGS: Clear to auscultation bilaterally. No wheezing or crackles. CVS: Regular rate and rhythm, S1 and S2 present, no murmurs or gallops appreciated. ABDOMEN: Soft, non-tender. No signs of distention. No rebound no guarding, and no masses palpated. Bowel sounds are normal. EXTREMITIES: FROM in all major joints, no edema, no cyanosis or clubbing. NEURO: Alert and oriented x 3. No acute neurological deficits. Speech is normal and follows commands. SKIN: Dry and warm GCS: 15 Triage Information Reviewed: Yes Vital Signs On Initial Exam: Initial Vitals Temp Pulse Resp BP Pulse Ox 97.8 F 90 20 139/84 96 08/29/18 13:12 08/29/18 13:12 08/29/18 13:12 08/29/18 13:12 08/29/18 13:12 Vital Signs Reviewed: Yes Diagnostics - Vital Signs Vital Signs Temp Pulse Resp BP Pulse Ox 08/29/18 13:12 97.8 F 90 20 139/84 96 - Laboratory Result Diagrams: 08/29/18 13:38 08/29/18 13:38 Lab Statement: Any lab studies that have been ordered have been reviewed, and results considered in the medical decision making process. - Radiology CXR Radiology Interpretation Completed By: Radiologist Summary of Radiographic Findings: No radiographic evidence of acute cardiopulmonary disease. ED physician has reviewed this report - EKG 13:13 Cardiac Rate: NL - 81 bpm EKG Rhythm: Sinus Rhythm EKG Comparison: No Significant Change - 06/11/18 Summary of EKG Findings: RBBB, similar to 06/11/18 Course/Dx - Course Assessment/Plan: This patient is a 43 year old F presenting to [facility] with a chief complaint of heart palpitations since 09:00. The patient rates the pain 5/ 10 in severity. Patient reports non-radiating CP, dizziness, and diaphoresis. Patient denies nausea or vomiting. PMHX SVT. RX Metoprolol 25 mg daily. Blood work without any significant abnormality except for glucose of 102. D-dimer is negative. Urinalysis is negative. EKG shows a normal sinus rhythm with a chronic right bundle branch block. Chest x-ray impression: Negative for an acute pathology. In the ED course the patient has remained stable. Since the d -dimer is negative and there is no suspicion for PE. She is on the test results are negative including the troponin is 0.00 the patient will be discharged home with follow-up with PCP and cardiology. I discussed all the findings and test results with the patient. Patient was instructed to return to the emergency room immediately if any of the symptoms return or worsens. Plan of care was discussed with the patient and understands and agrees. All questions were answered at patient satisfaction. There were no further complaints or concerns. Lung exam before discharge: CTA B/L. Good air exchange. No wheezing or crackles heard. CVS: S1 and S2 present. No murmurs appreciated. Patient is alert and oriented x 3. Patient is hemodynamically stable. Patient will be discharged home with follow up PCP in the next 2-3 days - Diagnoses Differential Diagnosis/HQI/PQRI: Positive: Cardiomyopathy, Hypokalemia, Paroxymal SVT, Pulmonary Embolism, Theophylline Toxicity Provider Diagnoses: Palpitations Discharge - Sign-Out/Discharge Documenting (check all that apply): Patient Departure - discharge - Discharge Plan Condition: Stable Disposition: HOME Patient Education Materials: Heart Palpitations (ED) Referrals: Yusuf Ayala MD [Primary Care Provider] - 2 Days Additional Instructions: Follow up with your primary care physician in 1-3 days. RETURN TO THE EMERGENCY DEPARTMENT FOR CHANGING OR WORSENING SYMPTOMS. - Billing Disposition and Condition Condition: STABLE Disposition: Home - Attestation Statements Document Initiated by Scribe: Yes Documenting Scribe: Delfino Cardenas Provider For Whom Sandeepe is Documenting (Include Credential): Efraín Pinzon MD Scribe Attestation: Delfino Dinh, scribed for Efraín Pinzon MD on 08/29/18 at 1854. Scribe Documentation Reviewed: Yes Provider Attestation: The documentation as recorded by the Delfino jordna accurately reflects the service I personally performed and the decisions made by me, Efraín Pinzon MD Status of Scribe Document: Viewed
[2018-08-29 13:49] LABS: ABS Basophils 0.1 10^3/ul (0-0.2); ABS Eosinophils 0.2 10^3/ul (0-0.6); ABS Lymphocytes 3.1 10^3/ul (1.0-4.8); ABS Monocytes 0.7 10^3/ul (0-0.8); ABS Neutrophils 5.7 10^3/ul (1.5-7.7); ABS Nucleated RBC 0 10^3/ul; Eosinophil % 1.9 %; Hematocrit 40 % (35-47); Hemoglobin 13.3 g/dl (12.0-16.0); Mean Corpuscular HGB Conc 34 g/dl (31-36); Mean Corpuscular Hemoglobin 31 pg (27-31); Mean Corpuscular Volume 92 fL (80-97); Mean Platelet Volume 7.9 fL (7.4-10.4); Nucleated Red Blood Cells % 0.1; Platelet Count 306 10^3/ul (150-450); Red Blood Count 4.27 10^6/ul (4.00-5.40); Red Cell Distribution Width 13 % (10.5-15); White Blood Count 9.9 10^3/ul (3.5-10.8)
[2018-08-29 14:05] LABS: Albumin 4.5 g/dL (3.2-5.2); Albumin/Globulin Ratio 1.3 (1-3); BUN/Creatinine Ratio 15.7 (8-20); EGFR Non-African American 68.6 (>60); Globulin 3.4 g/dL (2-4); Magnesium 2.1 mg/dL (1.9-2.7); Potassium 4.1 mmol/L (3.5-5.0); Total Bilirubin 0.2 mg/dL (0.2-1.0); Total Protein 7.9 g/dL (6.4-8.9)
[2018-08-29 14:22] LABS: Urine Appearance Clear; Urine Bilirubin Negative (Negative); Urine Blood Negative (Negative); Urine Color Straw; Urine Glucose Negative (Negative); Urine Ketones Negative (Negative); Urine Nitrite Negative (Negative); Urine Protein Negative (Negative); Urine Specific Gravity 1.006 (1.010-1.030); Urine Urobilinogen Negative (Negative)
[2018-08-29 14:47] LABS: TSH (Thyroid Stimulating Horm) 2.61 mcIU/mL (0.34-5.60)
[2018-08-29 15:47] VITALS: BP 124/75
== END 2018-08-29 15:48 | disposition home or self-care (01) ==
LOC: ED 13:04
DX: R00.2 Palpitations (principal); I45.10 Unspecified right bundle-branch block; R42 Dizziness and giddiness; R07.89 Other chest pain; R61 Generalized hyperhidrosis; K21.9 Gastro-esophageal reflux disease without esophagitis; Z88.6 Allergy status to analgesic agent; Z88.5 Allergy status to narcotic agent; Z88.0 Allergy status to penicillin; F17.210 Nicotine dependence, cigarettes, uncomplicated
CPT/HCPCS: 36415; 71046; 80053; 81003; 82550; 82553; 83605; 83735; 84443; 84484; 85025; 85379; 93005; 99282

== ENCOUNTER 2018-11-04 13:39 | Emergency (ER) | payer BC ==
--- OUTSIDE RECORDS SUMMARY | 2018-11-04 13:44 | XMS REPORT | Continuity of Care Document ---
:1975 External Reference #:[id number] Author Name Covert, Lee Ann Care Team Providers Name Role Phone Yusuf Ayala MD Primary Care Physician Unavailable Payers Date Identification Numbers Payment Provider Subscriber Policy Number: [id number] [employer] Donna Parmar PayID: [id number] [address] [address] [place] [address] Effective: 2015 Policy Number: [id number] [employer] Luis Carlos Parmar Expires: 2018 PayID: [id number] [address] [address] [place] [address] Advance Directives Description No Information Available Problems Date Description Provider Status Onset: 04/07/2018 Tobacco user Rito Metzger MD Active Onset: 04/07/2018 Palpitations Rito Metzger MD Active Onset: 04/07/2018 Obstructive sleep apnea syndrome Rito Metzger MD Active Onset: 04/07/2018 Paroxysmal supraventricular tachycardia Rito Metzger MD Active Onset: 04/07/2018 Hyperlipidemia screening Rito Metzger MD Active Onset: 04/07/2018 Abnormal weight gain Rito Metzger MD Active Onset: 10/08/2018 Right bundle branch block Sandi Owen M.D. Active Family History Date Family Member(s) Observation Comments Father Diabetes Father due to [place] () Father Heart Disease [place] age 40, 56 sepsis, bowel obstruction. 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 Tobacco Use Start: Unknown Light tobacco smoker (10 8-10 or fewer cigarettes/day) ETOH Use Rarely consumes alcohol Tobacco Use Start: Unknown Patient is a current smoker, smokes every day Recreational Drug Use Denies Drug Use Tobacco Use Start: Unknown Light tobacco smoker (10 8-10 per day or fewer cigarettes/day) Smoking Status Reviewed: 10/08/18 Light tobacco smoker (10 8-10 per day or fewer cigarettes/day) Exercise Type/Frequency Exercises sporadically active at work Allergies, Adverse Reactions, Alerts Date Description Reaction Status Severity Comments 06/17/2016 NSAIDs Active 07/03/2016 Tramadol Active 10/15/2016 Amoxicillin Active 10/15/2016 Doxycycline Active 06/03/2018 Ketorolac Tromethamine Active Severe Medications Medication Date Status Form Strength Qnty SIG Indications Ordering Provider Rosuvastatin 10/08/19 Active Tablets 10mg 90tab take 1 E78.00 Sandi Calcium 19 s tablet by minnie Owen.DLinda every evening Nicoderm CQ 04/07/20 Active Patches 14mg/24HR 21uni Use 1 F17.210 Rito Metzger 18 24HR ts patch daily (pt not taking now) Metoprolol 04/07/20 Active Tablets ER 25mg 150ta take 1 2 I47.1 Sandi Succinate ER 18 24HR bs tab daily. Ben Owen Magnesium 00 Active Powder 30 Unknown Hydroxide 00 milliliter s by mouth once a daily Omeprazole Active Capsules DR 40mg 1 by mouth Unknown 00 twice daily Tylenol Extra 0000 Active Tablets 500mg 2 by mouth Unknown Strength 00 as needed Carafate 0000 Active Tablets 1gm 1 gram Unknown 00 three times one hour before meals-- pt states she usually only takes twice, as she doesn't eat breakfast. Nicorette 04/07/20 Hx Gum 4mg 110un Use up to F17.210 Rito Metzger 18 - its every 2 MD 06/30/20 hours as 18 needed for cravings. (pt to start 04/11) Fluconazole 12/31/19 Hx Tablets 200mg 7tabs 1 tab by Anai Weston 17 - mouth MD Oni 04/06/20 every day 18 Nystatin 12/27/19 Hx Suspension [id number] 500ml swish and Ying 17 - t/ML swallow 1 B. Unknown teaspoon 4 [place], times a [employer] day for 14 days;rinse all food debris out of mouth before using nystatin Percocet 07/21/20 Hx Tablets 5-325mg 30tab 1-2 tabs Anai Weston 16 - s by mouth MD Oni Unknown every 4 hours as needed for pain Avelox Hx Tablets 400mg 1 every Unknown 00 - day for 7 Unknown days Tessalon Hx Capsules 100mg 1-2 by Unknown Perles 00 - mouth Unknown three times a day as needed Tylenol Extra Hx Tablets 500mg 3 by mouth Unknown Strength 00 - as needed Unknown Ranitidine Hx Capsules 150mg 1 by mouth Unknown HCL 00 - hs Unknown Zinc Hx Capsules 150-3.83- daily Unknown Magnesium 00 - 10mg Calcium 04/06/20 18 Nystatin Hx Suspension [id number] 5 Unknown 00 - t/ML milliliter Unknown s four times a day, swish and swallow for 14 days Hydrocodone-A Hx Tablets 5-325mg 30tab 1-2 tabs Anai Weston cetaminophen 00 - s by mouth MD Oni Unknown every 4- 6 hours as needed pain Immunizations Description No Information Available Vital Signs Date Vital Result Comment 10/08/2018 8:05am Height 62 inches 5'2" Weight 216.00 lb Heart Rate 86 /min BP Systolic Sitting 106 mmHg Lue lg cuff BP Diastolic Sitting 74 mmHg Lue lg cuff BP Systolic Standing 102 mmHg Lue BP Diastolic Standing 76 mmHg Lue Respiratory Rate 18 /min BMI (Body Mass Index) 39.5 kg/m2 Ejection Fraction 50-55% as of 03/2018 echo 09/03/2018 2:24pm Height 62 inches 5'2" Weight 217.38 lb with shoes and sweater Heart Rate 76 /min rt radial, regular BP Systolic Sitting 135 mmHg lt arm BP Diastolic Sitting 70 mmHg lt arm BMI (Body Mass Index) 39.8 kg/m2 Ejection Fraction REF 55% stress echo 05/11/18 07/01/2018 10:20am Height 62 inches 5'2" Weight 207.00 lb Heart Rate 81 /min reg BP Systolic Sitting 110 mmHg LA reg cuff BP Diastolic Sitting 80 mmHg LA reg cuff BP Systolic Standing 105 mmHg LA reg cuff BP Diastolic Standing 75 mmHg LA reg cuff Respiratory Rate 18 /min BMI (Body Mass Index) 37.9 kg/m2 Ejection Fraction 50-55% 04/21/18 06/23/2018 1:24pm Height 62 inches 5'2" Weight 207.00 lb Heart Rate 92 /min BP Systolic Sitting 100 mmHg Lue large cuff BP Diastolic Sitting 60 mmHg Lue large cuff Respiratory Rate 16 /min O2 % BldC Oximetry 97 % On Ra BMI (Body Mass Index) 37.9 kg/m2 06/03/2018 8:06am Height 62 inches 5'2" Weight 206.00 lb Heart Rate 70 /min BP Systolic Sitting 116 mmHg Lue large cuff BP Diastolic Sitting 76 mmHg Lue large cuff Respiratory Rate 12 /min O2 % BldC Oximetry 97 % BMI (Body Mass Index) 37.7 kg/m2 Neck Circumference in inches 15 04/09/2018 9:54am Height 62 inches 5'2" Weight 196.00 lb w/shoes Heart Rate 72 /min BP Systolic Sitting 126 mmHg Lue lg cuff BP Diastolic Sitting 74 mmHg Lue lg cuff BMI (Body Mass Index) 35.8 kg/m2 04/07/2018 1:40pm Height 62 inches 5'2" Weight 197.00 lb Heart Rate 70 /min BP Systolic 109 mmHg Rue average long cuff BP Diastolic 69 mmHg Rue average long cuff BP Systolic Sitting 108 mmHg Lue average long cuff BP Diastolic Sitting 76 mmHg Lue average long cuff O2 % BldC Oximetry 100 % BMI (Body Mass Index) 36.0 kg/m2 01/05/2017 3:18pm Heart Rate 90 /min BP Systolic 132 mmHg BP Diastolic 80 mmHg Respiratory Rate 18 /min Body Temperature 98.5 F 12/30/2016 11:12am Heart Rate 72 /min BP Systolic 108 mmHg BP Diastolic 74 mmHg Respiratory Rate 16 /min Body Temperature 98.1 F 12/26/2016 11:03am Heart Rate 74 /min Respiratory Rate 18 /min Body Temperature 97.8 F 12/09/2016 11:01am Height 62 inches 5'2" Weight 198.00 lb Heart Rate 78 /min BP Systolic 122 mmHg BP Diastolic 72 mmHg Respiratory Rate 16 /min Body Temperature 98.4 F BMI (Body Mass Index) 36.2 kg/m2 11/03/2016 8:51am Height 62 inches 5'2" Weight 206.00 lb Heart Rate 97 /min BP Systolic Sitting 98 mmHg BP Diastolic Sitting 62 mmHg Respiratory Rate 18 /min Pain Level 7 O2 % BldC Oximetry 97 % Ra BMI (Body Mass Index) 37.7 kg/m2 10/15/2016 3:50pm Heart Rate 78 /min BP Systolic 122 mmHg BP Diastolic 80 mmHg Respiratory Rate 18 /min Body Temperature 97.9 F 08/12/2016 11:19am Heart Rate 72 /min BP Systolic 130 mmHg BP Diastolic 80 mmHg Respiratory Rate 16 /min Body Temperature 98.5 F 08/04/2016 10:26am Height 62 inches 5'2" Weight 204.00 lb Heart Rate 62 /min BP Systolic Sitting 100 mmHg BP Diastolic Sitting 68 mmHg Respiratory Rate 18 /min Body Temperature 99.1 F BMI (Body Mass Index) 37.3 kg/m2 07/22/2016 11:39am Heart Rate 78 /min BP Systolic 138 mmHg BP Diastolic 80 mmHg Respiratory Rate 18 /min Body Temperature 97.7 F 07/03/2016 12:52pm Height 62 inches 5'2" Weight 214.00 lb Heart Rate 72 /min BP Systolic 108 mmHg BP Diastolic 72 mmHg Respiratory Rate 18 /min Body Temperature 97.8 F BMI (Body Mass Index) 39.1 kg/m2 06/17/2016 9:59am Height 62 inches 5'2" Weight 214.00 lb Heart Rate 80 /min BP Systolic 116 mmHg BP Diastolic 70 mmHg Respiratory Rate 16 /min Body Temperature 97.6 F BMI (Body Mass Index) 39.1 kg/m2 Results Test Date Facility Test Result H/L Range Note Lipid Profile 04/09/2018 [facility] Triglycerides 86 mg/dL 1, 2 (Trig/Chol/HDL) [address] [place] [address] [phone] Cholesterol 205 mg/dL 3 HDL Cholesterol 47.2 mg/dL 4 LDL Cholesterol 141 mg/dL 5 Laboratory test 04/09/2018 [facility] B-Type 44 pg/mL [address] [place] [address] Peptide BNP [phone] Laboratory test 04/07/2018 [facility] B-Type <pending> finding [address] [place] [address] Peptide BNP [phone] CBC No Diff 12/09/2016 [facility] White Blood Count 10.5 N 3.5 -[address] 10^3/uL .8 [place] [address] [phone] Red Blood Count 4.04 10^6/uL N 4.0-5.4 Hemoglobin 12.4 g/dL N 12.0-16.0 Hematocrit 37 % N 35-47 Mean Corpuscular Volume 92 fL N 80-97 Mean Corpuscular Hemoglobin 31 pg N 27-31 Mean Corpuscular HGB Conc 34 g/dL N 31-36 Red Cell Distribution Width 13 % N 10.5-15 Platelet Count 320 10^3/uL N 150-450 Mean Platelet Volume 9 um3 N 7.4-10.4 Type & Screen 12/09/2016 [facility] Patient Blood Type O Positive N [address] [place] [address] [phone] Antibody Screen NEGATIVE N Basic Metabolic Panel 12/09/2016 [facility] Sodium 136 mmol/L N 133-145 [address] [place] [address] [phone] Potassium 4.2 mmol/L N 3.5-5.0 Chloride 104 mmol/L N 101-111 Co2 Carbon Dioxide 26 mmol/L N 22-32 Anion Gap 6 mmol/L N 2-11 Glucose 91 mg/dL N 70-100 Blood Urea Nitrogen 13 mg/dL N 6-24 Creatinine 0.80 mg/dL N 0.51-0.95 BUN/Creatinine Ratio 16.3 N 8-20 Calcium 9.4 mg/dL N 8.6-10.3 Egfr Non- 78.3 N >60 Egfr 100.7 N >60 8 Comp Metabolic Panel 11/03/2016 [facility] Sodium 135 mmol/L N 133-145 [address] [place] [address] [phone] Potassium 4.3 mmol/L N 3.5-5.0 Chloride 104 mmol/L N 101-111 Co2 Carbon Dioxide 26 mmol/L N 22-32 Anion Gap 5 mmol/L N 2-11 Glucose 103 mg/dL High 70-100 Blood Urea Nitrogen 15 mg/dL N 6-24 Creatinine 0.79 mg/dL N 0.51-0.95 BUN/Creatinine Ratio 19.0 N 8-20 Calcium 9.6 mg/dL N 8.6-10.3 Total Protein 7.6 g/dL N 6.4-8.9 Albumin 4.3 g/dL N 3.2-5.2 Globulin 3.3 g/dL N 2-4 Albumin/Globulin Ratio 1.3 N 1-3 Total Bilirubin 0.20 mg/dL N 0.2-1.0 Alkaline Phosphatase 67 U/L N 34-104 Alt 11 U/L N 7-52 Ast 14 U/L N 13-39 Egfr Non- 79.4 N >60 Egfr 102.2 N >60 9 CBC Auto Diff 11/03/2016 [facility] White Blood 10.0 10^3/uL N 3.5-10.[address] [place] [address] [phone] Red Blood Count 4.20 10^6/uL N 4.0-5.4 Hemoglobin 12.9 g/dL N 12.0-16.0 Hematocrit 38 % N 35-47 Mean Corpuscular Volume 91 fL N 80-97 Mean Corpuscular Hemoglobin 31 pg N 27-31 Mean Corpuscular HGB Conc 34 g/dL N 31-36 Red Cell Distribution Width 13 % N 10.5-15 Platelet Count 324 10^3/uL N 150-450 Mean Platelet Volume 9 um3 N 7.4-10.4 Abs Neutrophils 7.1 10^3/uL N 1.5-7.7 Abs Lymphocytes 2.1 10^3/uL N 1.0-4.8 Abs Monocytes 0.5 10^3/uL N 0-0.8 Abs Eosinophils 0.1 10^3/uL N 0-0.6 Abs Basophils 0.1 10^3/uL N 0-0.2 Abs Nucleated RBC 0.01 10^3/uL N Granulocyte % 71.6 % N 38-83 Lymphocyte % 21.1 % Low 25-47 Monocyte % 5.1 % N 1-9 Eosinophil % 1.2 % N 0-6 Basophil % 1.0 % N 0-2 Nucleated Red Blood Cells % 0.1 N CBC No Diff 08/04/2016 [facility] White Blood 8.2 10^3/uL N 3.5-10.[address] [place] [address] [phone] Red Blood Count 4.22 10^6/uL N 4.0-5.4 Hemoglobin 12.8 g/dL N 12.0-16.0 Hematocrit 39 % N 35-47 Mean Corpuscular Volume 91 fL N 80-97 Mean Corpuscular Hemoglobin 30 pg N 27-31 Mean Corpuscular HGB Conc 33 g/dL N 31-36 Red Cell Distribution Width 13 % N 10.5-15 Platelet Count 409 10^3/uL N 150-450 Mean Platelet Volume 9 um3 N 7.4-10.4 Laboratory test 07/11/2016 [facility] Point of Care 108 mg/dL High 74-106 [address] [place] [address] [phone] 1 FASTING 2 Desirable: <150 Borderline High: 150-199 High: 200-499 Very High: >500 3 Desirable: <200 Borderline High: 200-239 High: >239 4 Low: <40 Desirable: 40-60 High: >60 5 Desirable: <100 Near Optimal: 100-129 Borderline High: 130-159 High: 160-189 Very High: >189 6 >100 to <200 pg/mL: likely compensated congestive heart failure (CHF) 200 to 400 pg/mL: likely moderate CHF >400 pg/mL: likely moderate to severe CHF 7 [place] [id number] 8 Because ethnic data is not always readily available, this report includes an eGFR for both -Americans and non- Americans. The National Kidney Disease Education Program (NKDEP) does not endorse the use of the MDRD equation for patients that are not between the ages of 18 and 70, are , have extremes of body size, muscle mass, or nutritional status, or are non- or non-. According to the National Kidney Foundation, irrespective of diagnosis, the stage of the disease is based on the level of kidney function: Stage Description GFR(mL/min/1.73 m(2)) 1 Kidney damage with normal or decreased GFR 90 2 Kidney damage with mild decrease in GFR 60-89 3 Moderate decrease in GFR 30-59 4 Severe decrease in GFR 15-29 5 Kidney failure <15 (or dialysis) 9 Because ethnic data is not always readily available, this report includes an eGFR for both -Americans and non- Americans. The National Kidney Disease Education Program (NKDEP) does not endorse the use of the MDRD equation for patients that are not between the ages of 18 and 70, are , have extremes of body size, muscle mass, or nutritional status, or are non- or non-. According to the National Kidney Foundation, irrespective of diagnosis, the stage of the disease is based on the level of kidney function: Stage Description GFR(mL/min/1.73 m(2)) 1 Kidney damage with normal or decreased GFR 90 2 Kidney damage with mild decrease in GFR 60-89 3 Moderate decrease in GFR 30-59 4 Severe decrease in GFR 15-29 5 Kidney failure <15 (or dialysis) 10 Ornamental Painter: [id number] BOTELLO Michelle Procedures Date Code Description Status 09/03/2018 24779 EKG Tracing & Interpretation Completed 07/24/2018 59435 Event Monitor/Phys Review/Interp. Completed 06/11/2018 68968 Sleep Study Unattended,HRT Rate,Oxygen Sat,Resp Completed Effort/Airflow 05/11/2018 89955 ECHO Stress Test Incl Perf Contiuous ekg Monitoring W/Phys Completed Superv 05/08/2018 79396 Holter Monitor Review (24 hr)dr review & interp only Completed 05/05/2018 68908 ECHO Stress Test Incl Perf Contiuous ekg Monitoring W/Phys Completed Superv 05/05/2018 35247 ECG Monitor/Recording W/Visual Superimposition Scanning Completed 05/04/2018 29615 ECG Monitor/Recording W/Visual Superimposition Scanning Completed 04/21/2018 42281 ECHO Transthoracic, Real-Time 2D With Doppler And Color Completed Flow 04/21/2018 07373 ECHO Transthoracic, Real-Time 2D With Doppler And Color Completed Flow 04/09/2018 82912 EKG Tracing & Interpretation Completed 12/19/2016 04180 Enterolysis Completed 12/19/2016 24671 Enterolysis Completed 07/11/2016 80437 Laparoscopy Surgical Repair Incisional Hernia Completed 07/11/2016 67565 Laparoscopy Surgical Repair Incisional Hernia Completed 02/01/2014 23661 EKG, Interpretation Only Completed Encounters Type Date Location Provider Dx Diagnosis Office Visit 10/08/2018 [facility] Sandi Owen, I47.1 Supraventricular 8:20a [facility] [employer] [facility] [place] [facility] [place] 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 G47.33 Obstructive sleep 10:40a [facility] apnea (adult) [facility] (pediatric) E66.09 Other obesity due to excess calories I47.1 Supraventricular tachycardia R00.2 Palpitations I34.0 Nonrheumatic mitral (valve) insufficiency E78.2 Mixed hyperlipidemia Office Visit 06/23/2018 [facility] G47.33 Obstructive sleep 1:30p [facility] KARLA Camp, RN, apnea (adult) [facility] RECORD CUTTER- (pediatric) G47.14 Hypersomnia due to medical condition F17.210 Nicotine dependence, cigarettes, uncomplicated Z68.37 Body mass index (BMI) 37.0-37.9, adult Office Visit 06/03/2018 8:30a [facility] Imelda Real R06.83 [facility] R53.83 Other fatigue E66.09 Other obesity due to excess calories K21.0 Gastro-esophageal reflux disease with esophagitis Z68.37 Body mass index (BMI) 37.0-37.9, adult Office Visit 04/09/2018 Kailee Ibarra S. F17.210 Nicotine 10:20a [facility] dependence, cigarettes, uncomplicated R00.2 Palpitations I47.1 Supraventricular tachycardia E66.9 Obesity, unspecified R07.9 Chest pain, unspecified I45.10 Unspecified right bundle-branch block R94.31 Abnormal electrocardiogram [ECG] [EKG] Office Visit 04/07/2018 1:30p [facility] Rito Metzger F17.210 [facility] dependence, cigarettes, uncomplicated R00.2 Palpitations G47.33 Obstructive sleep apnea (adult) (pediatric) I47.1 Supraventricular tachycardia Z13.220 Encounter for screening for lipoid disorders R63.5 Abnormal weight gain Office Visit 11/03/2016 9:00a Surgical Anai Enrico R10.31 Right lower [facility] MD quadrant pain AT [place] K21.9 Gastro-esophageal reflux disease without esophagitis R11.2 Nausea with vomiting, unspecified R14.0 Abdominal distension (gaseous) Office Visit 10/15/2016 Surgical Suresh CifuentesLinda R10.31 Right lower 4:00p [facility] MD quadrant pain Office Visit 08/04/2016 Surgical Anai Bunn, R10.31 Right lower 10:00a [facility] quadrant pain Office Visit 07/16/2016 [facility] Jose K21.9 Gastro-esophagea 9:24a Assoc,jodee Davdi reflux disease Hospitalists ESTELA without esophagitis R73.03 Prediabetes Office 07/15/2016 [facility] [place] K21.9 Gastro-esophageal Visit 9:24a Assoc,pc Velma reflux disease Hospitalists SURAJ Buchanan without esophagitis R73.03 Prediabetes Office 07/14/2016 [facility] Lazaro K21.9 Gastro-esophageal Visit 9:23a Assoc,[facility] reflux disease without Hospitalists esophagitis R73.03 Prediabetes Office Visit 06/17/2016 10:00a Surgical Anai Weston K43.2 Incisional hernia [facility] MD without obstruction or gangrene Plan of Treatment 10/08/2018 - Sandi Owen M.D.I47.1 Supraventricular tachycardiaComments:You have this. Brief rapid runs from upper chamber of the heart seen on monitor.Follow up:4 months after updated lipids.Recommendations:Lifestyle modifications that can decrease the extra beats: Avoid caffeine, alcohol and some over thecounter cold meds, example Suafed, Afrin. Get enough sleep. Manage your stress. Option of increasing metoprolol, try 37.5 mg ( 1 1/2 tabs daily). [email or web address] Unspecified right bundle-branch blockComments: You have a right bundle branch block this is new, likely degenerative and not dangerous.Z72.0 Tobacco useComments:You have to stop smoking, it puts you at risk for rhythm issues and heart attack.Z82.49 Family history of ischemic heart disease and other diseasesComments:Risks for coronary disease include:elevated blood pressure.Overweight.Elevated cholesterol.Elevated glucose/ diabetesSmoking.Inactive lifestyle.Recommendations:Stop smoking. Regular exercise, 3 hours weekly. Better diet. Start cholesterol medicine.E78.00 Pure hypercholesterolemia, unspecifiedNew Medication:Rosuvastatin Calcium 10 mg - take 1 tablet by mouth every eveningComments:LDL goal for primary prevention is 100-130.Recommendations:Continue to work on diet, exercise, lifestyle. Mediterranean diet. Start Rosuvastatin (crestor) 10 mg/day.
[2018-11-04 13:47] VITALS: BP 112/76
--- NOTE | 2018-11-04 14:24 | UC ---
Throat Pain/Nasal Wil HPI - HPI Summary HPI Summary: Swann, sore throat and nasal congestion x3 days. - History of Current Complaint Chief Complaint: UCGeneralIllness Stated Complaint: HEADACHE SORE THROAT COUGH Time Seen by Provider: 11/04/18 13:54 Hx Obtained From: Patient Hx Last Menstrual Period: hyster Pain Intensity: 11 - Allergies/Home Medications Allergies/Adverse Reactions: Allergies Allergy/AdvReac Type Severity Reaction Status Date / Time ketorolac Allergy Swelling Verified 11/04/18 13:48 Of Face,Lips,& Throat NSAIDS (Non-Steroidal Allergy See Comment Verified 11/04/18 13:48 Anti-Inflamma tramadol Allergy Headache Verified 11/04/18 13:48 amoxicillin AdvReac See Comment Verified 11/04/18 13:48 Home Medications: Home Medications Metoprolol Succinate XL TAB* [Toprol XL TAB*] 37.5 mg PO DAILY 11/04/18 [ History Confirmed 11/04/18] Rosuvastatin Calcium 10 mg PO DAILY 11/04/18 [History Confirmed 11/04/18] PMH/Surg Hx/FS Hx/Imm Hx Cardiovascular History: Hypertension - Surgical History Surgical History: Yes Surgery Procedure, Year, and Place: 1991& [place] [facility] [place]STERECTOMY RT [facility]. 1992 VENTRAL HERNIA REPAIR & ABLATION ,[place] [facility]. 2009 HEATHER FUNDAPILLATION [facility] [place]. 2010 GASTRIC PERFORATION, [facility] [place]. 2014 ADHESIONS REMOVED FROM [place]BDOMEN [facility] [place]. 2013 ABLATION RT [facility]. 2016 hernia repair with mesh insert - Family History Known Family History: Positive: Diabetes, Non-Contributory - Social History Alcohol Use: Rare Alcohol Amount: "maybe once every few weeks I'll have a glass of wine" Substance Use Type: None Smoking Status (MU): Heavy Every Day Tobacco Smoker Type: Cigarettes Amount Used/How Often: <1 PACK A DAY 20 YRS Have You Smoked in the Last Year: Yes Household Exposure Type: Cigarettes - Immunization History Most Recent Influenza Vaccination: 2008 Most Recent Tetanus Shot: Up to date Most Recent Pneumonia Vaccination: 2003 AT LEAST Review of Systems All Other Systems Reviewed And Are Negative: Yes Constitutional: Negative: Fever, Chills, Fatigue ENT: Positive: Sore Throat, Sinus Congestion, Sinus Pain/Tenderness, Other - lost voice. Negative: Dental Pain Respiratory: Negative: Shortness Of Breath, Cough Cardiovascular: Negative: Chest Pain Neurological: Positive: Headache Physical Exam Triage Information Reviewed: Yes Appearance: Well-Appearing Vital Signs: Initial Vital Signs Temp 97.9 F 11/04/18 13:45 Pulse 86 11/04/18 13:45 Resp 16 11/04/18 13:45 BP 112/76 11/04/18 13:45 Pulse Ox 100 11/04/18 13:45 Vital Signs Reviewed: Yes ENT: Positive: Pharynx normal, TMs normal, Hoarse voice, Dental tenderness, Sinus tenderness - L side Neck exam: Normal Respiratory Exam: Normal Neurological: Positive: Alert, Other: - CN II-VII grossly intact Throat Pain/Nasal Course/Dx - Course Course Of Treatment: sinusitis for a few days w/ assoc. swann. ON exam was tender on L side. Rapid strep neg. Of note when I asked her about he rAmox allergy she stated she gets very bad GI symptoms. We discussed these with all types of antibiotics and we can cont. w/ this tx. I asked if there were any systemic allergic rxns w/ this medication and she denied. I gave fluconazole to yeast infection as she gets these often w/ antibx. - Differential Dx/Diagnosis Differential Diagnosis/HQI/PQRI: Pharyngitis, Sinusitis, Tonsillitis, URI Provider Diagnosis: Sinusitis Discharge - Sign-Out/Discharge Documenting (check all that apply): Patient Departure All imaging exams completed and their final reports reviewed: No Studies - Discharge Plan Condition: Good Disposition: HOME Prescriptions: Amoxicillin/Clavulanate TAB* [Augmentin TAB 875*] 875 mg PO BID 5 Days #10 tab Fluconazole 150 MG TAB* [Diflucan 150 MG TAB*] 150 mg PO ONCE 1 Days #1 tablet Patient Education Materials: Sinusitis (ED) Forms: *Work Release Referrals: Yusuf Ayala MD [Primary Care Provider] - Additional Instructions: f/u with your pcp if worsening. - Billing Disposition and Condition Condition: GOOD Disposition: Home
== END 2018-11-04 14:33 | disposition home or self-care (01) ==
LOC: UCEAST 13:39
DX: J32.9 Chronic sinusitis, unspecified (principal); F17.210 Nicotine dependence, cigarettes, uncomplicated; I10 Essential (primary) hypertension; Z79.899 Other long term (current) drug therapy; Z88.0 Allergy status to penicillin; Z88.5 Allergy status to narcotic agent; Z88.8 Allergy status to other drugs, medicaments and biological substances
CPT/HCPCS: 87651; 99212; G0463

== ENCOUNTER 2018-12-10 10:17 | Emergency (ER) | payer BC ==
[2018-12-10 11:11] LABS: ABS Basophils 0.1 10^3/ul (0-0.2); ABS Eosinophils 0.1 10^3/ul (0-0.6); ABS Lymphocytes 2.3 10^3/ul (1.0-4.8); ABS Monocytes 0.6 10^3/ul (0-0.8); ABS Neutrophils 5.3 10^3/ul (1.5-7.7); ABS Nucleated RBC 0 10^3/ul; Eosinophil % 1.7 %; Hematocrit 37 % (33-41); Hemoglobin 12.5 g/dL (12.0-16.0); Lymphocyte % 27.1 %; Mean Corpuscular HGB Conc 34 g/dL (31-36); Mean Corpuscular Hemoglobin 31 pg (27-31); Mean Corpuscular Volume 93 fL (80-97); Mean Platelet Volume 8.2 fL (7.4-10.4); Nucleated Red Blood Cells % 0; Platelet Count 282 10^3/uL (150-450); Red Blood Count 3.97 10^6 /uL (3.70-4.87); Red Cell Distribution Width 13 % (10.5-15); White Blood Count 8.5 10^3/uL (3.5-10.8)
--- NOTE | 2018-12-10 11:22 | ED ---
HPI Chest Pain - HPI Summary HPI Summary: 43-year-old female presents with "occasional chest squeeze" today. States that has since developed acid reflux. She denies any nausea vomiting. No diaphoresis. Pain on the left side of chest radiates to left shoulder. has never had this before. Denies any palpitations. Has a history of SVT with ablation. Has strong family history of cardiac disease. He is a smoker. Denies any recent travel. Also admits to right leg pain. Does have family history of blood clots. No recent illness. - History of Current Complaint Chief Complaint: EDChestPainROMI Time Seen by Provider: 12/10/18 10:25 Hx Last Menstrual Period: hyster Pain Intensity: 7 - Additional Pertinent History Primary Care Physician: GENARO - Allergy/Home Medications Allergies/Adverse Reactions: Allergies Allergy/AdvReac Type Severity Reaction Status Date / Time ketorolac Allergy Swelling Verified 12/10/18 10:28 Of Face,Lips,& Throat NSAIDS (Non-Steroidal Allergy See Comment Verified 12/10/18 10:28 Anti-Inflamma tramadol Allergy Headache Verified 12/10/18 10:28 amoxicillin AdvReac See Comment Verified 12/10/18 10:28 Home Medications: Home Medications Magnesium Hydroxide LIQ* [Milk of Magnesia LIQ*] 30 ml PO DAILY 12/10/18 [ History Confirmed 12/10/18] PMH/Surg Hx/FS Hx/Imm Hx Endocrine/Hematology History: Reports: Hx Diabetes - Pre-DIABETIC, Hx Anemia - WITH Denies: Hx Systemic Lupus Erythematosus Cardiovascular History: Reports: Hx Rheumatic Fever - YOUNG CHILD, 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 SURGERIES History: Reports: Hx Kidney Stones - Hx OF , PASSED ON OWN, NONE IN RECENT YEARS, Other Problems/Disorders Denies: Hx Dialysis, Hx Renal Disease Musculoskeletal History: Reports: Hx Arthritis - fingers Denies: Hx Rheumatoid Arthritis Sensory History: Reports: Hx Contacts or Glasses - CONTACTS, WILL WEAR GLASSES DAY OF SURGERY Denies: Hx Hearing Aid Opthamlomology History: Reports: Hx Contacts or Glasses - CONTACTS, WILL WEAR GLASSES DAY OF SURGERY Neurological History: Reports: Hx Migraine - Hx OF, EVERY FEW MONTHS - Cancer History Hx Chemotherapy: No - Surgical History Surgery Procedure, Year, and Place: 1991& 1998 [facility] [place]. 2007 HYSTERECTOMY [facility]. 1992 VENTRAL HERNIA REPAIR & ABLATION ,[place]. 2009 HEATHER FUNDAPILLATION [facility] [place]. 2010 GASTRIC PERFORATION, [facility] [place]. 2013 ADHESIONS REMOVED FROM ABDOMEN [facility] [place]. 2013 ABLATION RT [facility]. 2016 hernia repair with mesh insert Hx Anesthesia Reactions: No - Immunization History Date of Influenza Vaccine: 2018 Immunizations Up to Date: Yes Infectious Disease History: No Infectious Disease History: Reports: Hx Shingles Denies: History Other Infectious Disease, Traveled Outside the in Last 30 Days - Family History Known Family History: Positive: Diabetes, Non-Contributory - Social History Alcohol Use: Rare Alcohol Amount: "maybe once every few weeks I'll have a glass of wine" Substance Use Type: Reports: None Smoking Status (MU): Heavy Every Day Tobacco Smoker Type: Cigarettes Amount Used/How Often: <1 PACK A DAY 20 YRS Have You Smoked in the Last Year: Yes Review of Systems Negative: Fever Positive: Chest Pain Negative: Shortness Of Breath Negative: Abdominal Pain All Other Systems Reviewed And Are Negative: Yes Physical Exam Triage Information Reviewed: Yes Vital Signs On Initial Exam: Initial Vitals Temp Pulse Resp BP Pulse Ox 98.5 F 81 16 136/90 96 12/10/18 10:26 12/10/18 10:26 12/10/18 10:26 12/10/18 10:26 12/10/18 10:26 Vital Signs Reviewed: Yes Appearance: Positive: Well-Appearing Skin: Positive: Warm, Dry Head/Face: Positive: Normal Head/Face Inspection Eyes: Positive: Normal, EOMI, MCKENNA, Conjunctiva Clear ENT: Positive: Pharynx normal Respiratory/Lung Sounds: Positive: Clear to Auscultation, Breath Sounds Present Cardiovascular: Positive: Normal, RRR Abdomen Description: Positive: Nontender, Soft Bowel Sounds: Positive: Present Musculoskeletal: Positive: Normal Neurological: Positive: Normal Psychiatric: Positive: Normal Diagnostics - Vital Signs Vital Signs Temp Pulse Resp BP Pulse Ox 12/10/18 10:26 98.5 F 81 16 136/90 96 - Laboratory Lab Results: Lab Results 12/10/18 Range/Units 11:00 WBC 8.5 (3.5-10.8) 10^3/uL RBC 3.97 (3.70-4.87) 10^6 /uL Hgb 12.5 (12.0-16.0) g/dL Hct 37 (33-41) % MCV 93 (80-97) fL MCH 31 (27-31) pg MCHC 34 (31-36) g/dL RDW 13 (10.5-15) % Plt Count 282 (150-450) 10^3/uL MPV 8.2 (7.4-10.4) fL Neut % (Auto) 62.7 % Lymph % (Auto) 27.1 % Ashley % (Auto) 7.3 % Eos % (Auto) 1.7 % Baso % (Auto) 1.2 % Absolute Neuts (auto) 5.3 (1.5-7.7) 10^3/ul Absolute Lymphs (auto) 2.3 (1.0-4.8) 10^3/ul Absolute Monos (auto) 0.6 (0-0.8) 10^3/ul Absolute Eos (auto) 0.1 (0-0.6) 10^3/ul Absolute Basos (auto) 0.1 (0-0.2) 10^3/ul Absolute Nucleated RBC 0 10^3/ul Nucleated RBC % 0 Result Diagrams: 12/10/18 11:00 12/10/18 11:00 Lab Statement: Any lab studies that have been ordered have been reviewed, and results considered in the medical decision making process. - Radiology chest Radiology Interpretation Completed By: Radiologist Summary of Radiographic Findings: IMPRESSION: NO ACTIVE CARDIOPULMONARY DISEASE IS NOTED. - Ultrasound No standard instances Ultrasound Interpretation Completed By: Radiologist Summary of Ultrasound Findings: IMPRESSION: NO EVIDENCE FOR DEEP VENOUS THROMBOSIS. - EKG No standard instances Cardiac Rate: NL EKG Rhythm: Sinus Rhythm ST Segment: Non-Specific EKG Comparison: No Significant Change Summary of EKG Findings: sinus rhythm, ST depression lateral leads unchange previous, right bundle branch block Re-Evaluation - Re-Evaluation First Eval Re-Evaluation Time: 12:12 Comment: discused lab results Second Eval Re-Evaluation Time: 13:11 Comment: no chest pain, still a little heart burn so will try gi cocktail Third Eval Re-Evaluation Time: 13:51 Change: Improved Comment: acid reflux resolved Chest Pain Course/Dx - Course Course Of Treatment: 43-year-old female presents with "occasional chest squeeze " today. States that has since developed acid reflux. She denies any nausea vomiting. No diaphoresis. Pain on the left side of chest radiates to left shoulder. has never had this before. Denies any palpitations. Has a history of SVT with ablation. Has strong family history of cardiac disease. He is a smoker. Denies any recent travel. Also admits to right leg pain. Does have family history of blood clots. No recent illness. On exam lungs auscultation. Heart regular rate and rhythm. EKG similar to previous EKG. wbc normal. Troponin 0.1. D-dimer negative. Ultrasound leg normal. patient no longer has chest pain. troponin second 0.1 which is same. no chest pain now so will discharge to have follow up with cardiology. patient understand and agrees with plan. - Chest Pain Differential Diagnosis/HQI/PQRI: Acute UT, Chest Wall, GI Disease, Pulmonary Embolism - Diagnoses Provider Diagnoses: Chest pain Discharge - Sign-Out/Discharge Documenting (check all that apply): Patient Departure Patient Received Moderate/Deep Sedation with Procedure: No - Discharge Plan Condition: Good Disposition: HOME Patient Education Materials: Chest Pain (ED) Referrals: Yusuf Ayala MD [Primary Care Provider] - Anselmo Simeon MD [Medical Doctor] - Additional Instructions: Follow up with dr simeon Return to ED if develop any new or worsening symptoms - Billing Disposition and Condition Condition: GOOD Disposition: Home
[2018-12-10 11:29] LABS: Troponin I 0.01 ng/mL (<0.04)
[2018-12-10 11:51] LABS: Albumin 3.9 g/dL (3.2-5.2); Albumin/Globulin Ratio 1.2 (1-3); BUN/Creatinine Ratio 21.6 (8-20); Calcium 9.2 mg/dL (8.6-10.3); EGFR African American 84.1 (>60); EGFR Non-African American 69.5 (>60); Globulin 3.3 g/dL (2-4); Potassium 3.8 mmol/L (3.5-5.0); Total Bilirubin 0.2 mg/dL (0.2-1.0); Total Protein 7.2 g/dL (6.4-8.9)
[2018-12-10] MEDS ORDERED: Al Hydrox/Mg Hydrox/Simet LIQ* 30 ML UDC PO ONE (13:08)
[2018-12-10] MEDS ORDERED: Lidocaine 2% VISCOUS* 15 ML UDC PO ONE (13:08)
[2018-12-10 13:55] VITALS: BP 115/80
== END 2018-12-10 13:54 | disposition home or self-care (01) ==
LOC: ED 10:17
DX: R07.9 Chest pain, unspecified (principal); F17.210 Nicotine dependence, cigarettes, uncomplicated; R73.03 Prediabetes; Z86.79 Personal history of other diseases of the circulatory system; Z88.0 Allergy status to penicillin
CPT/HCPCS: 36415; 71045; 80053; 83605; 83880; 84484; 85025; 85379; 93005; 99283; A9270-GY

== ENCOUNTER 2019-07-12 10:56 | Emergency (ER) | payer BC ==
[2019-07-12] MEDS ORDERED: Lidocaine 2% VISCOUS* 15 ML UDC PO ONE (11:26)
[2019-07-12] MEDS ORDERED: Al Hydrox/Mg Hydrox/Simet LIQ* 30 ML UDC PO ONE (11:26)
--- NOTE | 2019-07-12 11:29 | ED ---
HPI Chest Pain - HPI Summary HPI Summary: This patient is a 43 year old F presenting to ED with a chief complaint of heartburn chest pain since 0530 this morning. Patient reports having heartburn since 0530 this morning with increasing tightness through her shoulder blades since then. Patient reports feeling the flutters going on. She took omeprazole and tums, but they did not help. Patient reports a history of SVT with ablations but denies ever having an MS. She has been sick for the past two weeks with a URI. She reports this is pretty severe compared to her regular heartburn episodes. She denies profuse sweating, but states her underarms were sweaty. She did not take aspirin today. Patient just flew back from [place] on about a 9 hour flight including the layover. The patient rates the pain 4/10 in severity. Symptoms aggravated by nothing. Symptoms alleviated by nothing. Patient reports mild dizziness, lightheadedness, generalized leg cramps. Patient denies shortness of breath, nausea (but she has not eaten today), edema. Medications reviewed. Allergies noted. - History of Current Complaint Chief Complaint: EDChestPainROMI Time Seen by Provider: 07/12/19 11:17 Hx Obtained From: Patient Hx Last Menstrual Period: hyster Onset/Duration: Started Hours Ago - 529 this morning, Still Present Timing: Constant, Lasting Hours - Since 05 this morning Initial Severity: Moderate Current Severity: Moderate Pain Intensity: 4 Pain Scale Used: 0-10 Numeric Chest Pain Location: Mid Sternal Chest Pain Radiates: Yes Chest Pain Radiates To:: Shoulder Character: Burning Aggravating Factor(s): Nothing Alleviating Factor(s): Nothing Associated Signs and Symptoms: Positive: Chest Pain, Dizziness, Lightheadedness. Negative: Weakness, Shortness of Breath, Nausea, Calf Pain/ Swelling - Additional Pertinent History Primary Care Physician: GENARO - Allergy/Home Medications Allergies/Adverse Reactions: Allergies Allergy/AdvReac Type Severity Reaction Status Date / Time ketorolac Allergy Swelling Verified 12/10/18 10:28 Of Face,Lips,& Throat NSAIDS (Non-Steroidal Allergy See Comment Verified 12/10/18 10:28 Anti-Inflamma tramadol Allergy Headache Verified 12/10/18 10:28 amoxicillin AdvReac See Comment Verified 12/10/18 10:28 PMH/Surg Hx/FS Hx/Imm Hx Endocrine/Hematology History: Reports: Hx Diabetes - Pre-DIABETIC, Hx Anemia - WITH Denies: Hx Systemic Lupus Erythematosus Cardiovascular History: Reports: 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 SURGERIES History: Reports: Hx Kidney Stones - Hx OF , PASSED ON OWN, NONE IN RECENT YEARS, Other Problems/Disorders Denies: Hx Dialysis, Hx Renal Disease Musculoskeletal History: Reports: Hx Arthritis - fingers Denies: Hx Rheumatoid Arthritis Sensory History: Reports: Hx Contacts or Glasses - CONTACTS, WILL WEAR GLASSES DAY OF SURGERY Denies: Hx Hearing Aid Opthamlomology History: Reports: Hx Contacts or Glasses - CONTACTS, WILL WEAR GLASSES DAY OF SURGERY Neurological History: Reports: Hx Migraine - Hx OF, EVERY FEW MONTHS - Cancer History Hx Chemotherapy: No - Surgical History Surgery Procedure, Year, and Place: [place] [facility] [place] [facility] 1992 VENTRAL HERNIA REPAIR & [place]BLATION ,[place]. [address] [facility] [place] 2010 GASTR[place], [facility] [place] [address] [facility] [place] 2013 ABLATION RT [facility]. 2016 hernia repair with mesh insert Hx Anesthesia Reactions: No - Immunization History Date of Influenza Vaccine: 2018 Infectious Disease History: No Infectious Disease History: Reports: Hx Shingles Denies: History Other Infectious Disease, Traveled Outside the in Last 30 Days - Family History Known Family History: Positive: Cardiac Disease, Diabetes, Non-Contributory - Social History Alcohol Use: Rare Alcohol Amount: "maybe once every few weeks I'll have a glass of wine" Hx Substance Use: No Substance Use Type: Reports: None Hx Tobacco Use: Yes Smoking Status (MU): Heavy Every Day Tobacco Smoker Type: Cigarettes Amount Used/How Often: <1 PACK A DAY 20 YRS Have You Smoked in the Last Year: Yes Review of Systems Positive: Skin Diaphoresis - Under arms Positive: Chest Pain - Heartburn Negative: Shortness Of Breath Negative: Nausea Musculoskeletal: Other - Generalized leg spasms Negative: Edema Neurological: Other - Dizziness, lightheadedness All Other Systems Reviewed And Are Negative: Yes Physical Exam - Summary Physical Exam Summary: Constitutional: Well-developed, Well-nourished, Alert. (-) Distressed Skin: Warm, Dry HENT: Normocephalic; Atraumatic Eyes: Conjunctiva normal Neck: Musculoskeletal ROM normal neck. (-) JVD, (-) Stridor, (-) Tracheal deviation Cardio: Rhythm regular, rate normal, Heart sounds normal; Intact distal pulses; Radial pulses are 2+ and symmetric. (-) Murmur. Mild epigastric tenderness. Pulmonary/Chest wall: Effort normal. (-) Respiratory distress, (-) Wheezes, (-) Rales Abd: Soft, (-) tenderness, (-) Distension, (-) Guarding, (-) Rebound Musculoskeletal: (-) Edema. Good pulses bilaterally in radius, No calf tenderness, No venous cords, No pain with dorsiflexion of foot. Lymph: (-) Cervical adenopathy Neuro: Alert, Oriented x3 Psych: Mood and affect Normal Triage Information Reviewed: Yes Vital Signs On Initial Exam: Initial Vitals Temp Pulse Resp BP Pulse Ox 98.1 F 69 15 138/91 100 07/12/19 11:10 07/12/19 11:10 07/12/19 11:10 07/12/19 11:10 07/12/19 11:10 Vital Signs Reviewed: Yes Procedures - Sedation Patient Received Moderate/Deep Sedation with Procedure: No Diagnostics - Vital Signs Vital Signs Temp Pulse Resp BP Pulse Ox 07/12/19 11:21 72 07/12/19 11:10 98.1 F 69 15 138/91 100 - Laboratory Result Diagrams: 07/12/19 11:57 07/12/19 11:57 Lab Statement: Any lab studies that have been ordered have been reviewed, and results considered in the medical decision making process. - Radiology CXR Radiology Interpretation Completed By: Radiologist Summary of Radiographic Findings: NO ACTIVE CARDIOPULMONARY DISEASE. Dr. Nathan has reviewed this radiology report. - EKG 1100 Cardiac Rate: NL - 71 BPM EKG Rhythm: Sinus Rhythm EKG Comparison: No Significant Change - Unchanged from previous EKG taken Summary of EKG Findings: EKG at 1100 revealed NSR at 71 BPM, T-wave inversion in II, III, aVF, V3, V4, V5, unchanged from previous EKG taken 12/10/18. Re-Evaluation - Re-Evaluation First Eval Re-Evaluation Time: 12:47 Comment: Discussed results with patient. Patient agrees to stay for 2nd troponin. Second Eval Re-Evaluation Time: 13:17 Comment: Patient wants to leave but was convinced to stay. Third Eval Re-Evaluation Time: 15:10 Comment: Discussed results with patient. Patient will be discharged home with dx of chest pain. Patient understands and agrees with this plan. Strict return precautions given. Chest Pain Course/Dx - Course Course Of Treatment: Patient is here with epigastric pain that relates into her chest and back. Patient has a history of GERD and states this feels like a severe acid reflux attack. Patient was given Maalox and lidocaine with mild improvement in her symptoms. Patient was not given aspirin as she has been set allergy. Patient had an EKG which showed no changes from baseline. Patient had serial troponins were negative. Patient's story and history are not consistent with PE or dissection. Patient was discharged with cardiology follow -up for stress test. - Diagnoses Provider Diagnoses: Chest pain Discharge ED - Sign-Out/Discharge Documenting (check all that apply): Patient Departure - Discharge - Discharge Plan Condition: Stable Disposition: HOME Patient Education Materials: Chest Pain (ED) Referrals: Yusuf Ayala MD [Primary Care Provider] - 3 Days Sandi Owen MD [Medical Doctor] - 3 Days Additional Instructions: Follow-up with Dr. Owen in 1-3 days for a stress test. RETURN TO THE ER FOR WORSENING CHEST PAIN. - Billing Disposition and Condition Condition: STABLE Disposition: Home - Attestation Statements Document Initiated by Scribe: Yes Documenting Scribe: Jay Jay Mckinney Provider For Whom Hans is Documenting (Include Credential): Luis Miguel Nathan MD Scribe Attestation: Jay Jay Dinh, scribed for Luis Miguel Nathan MD on 07/12/19 at 1517. Scribe Documentation Reviewed: Yes Provider Attestation: The documentation as recorded by the Jay Jay jordan accurately reflects the service I personally performed and the decisions made by me, Luis Miguel Nathan MD Status of Scribe Document: Viewed
[2019-07-12 12:09] LABS: ABS Basophils 0.1 10^3/ul (0-0.2); ABS Eosinophils 0.1 10^3/ul (0-0.6); ABS Lymphocytes 2.5 10^3/ul (1.0-4.8); ABS Monocytes 0.6 10^3/ul (0-0.8); ABS Neutrophils 5.3 10^3/ul (1.5-7.7); Eosinophil % 1.6 %; Hematocrit 39 % (35-47); Hemoglobin 13.5 g/dL (12.0-16.0); Lymphocyte % 29.2 %; Mean Corpuscular HGB Conc 35 g/dL (31-36); Mean Corpuscular Hemoglobin 32 pg (27-31); Mean Corpuscular Volume 92 fL (80-97); Mean Platelet Volume 8.1 fL (7.4-10.4); Platelet Count 305 10^3/uL (150-450); Red Blood Count 4.22 10^6 /uL (3.70-4.87); Red Cell Distribution Width 13 % (10-15); White Blood Count 8.6 10^3/uL (3.5-10.8)
[2019-07-12 12:30] LABS: Albumin 4.4 g/dL (3.2-5.2); Albumin/Globulin Ratio 1.2 (1-3); BUN/Creatinine Ratio 22.9 (8-20); Calcium 9.7 mg/dL (8.6-10.3); EGFR Non-African American 74.3 (>60); Globulin 3.6 g/dL (2-4); Potassium 4.4 mmol/L (3.5-5.0); Total Bilirubin 0.3 mg/dL (0.2-1.0)
[2019-07-12 15:20] VITALS: BP 130/85
== END 2019-07-12 15:19 | disposition home or self-care (01) ==
LOC: ED 10:56
DX: R07.89 Other chest pain (principal); R42 Dizziness and giddiness; R25.2 Cramp and spasm; E11.9 Type 2 diabetes mellitus without complications; K21.9 Gastro-esophageal reflux disease without esophagitis; Z88.6 Allergy status to analgesic agent; Z88.5 Allergy status to narcotic agent; Z88.0 Allergy status to penicillin; F17.210 Nicotine dependence, cigarettes, uncomplicated
CPT/HCPCS: 36415; 71045; 80053; 83690; 84484; 85025; 99283; A9270-GY

== ENCOUNTER 2019-09-12 08:25 | Emergency (ER) | payer BC ==
--- OUTSIDE RECORDS SUMMARY | 2019-09-12 08:56 | XMS REPORT | Continuity of Care Document ---
:1975 External Reference #:[id number] Author Name Sandi Owen M.D. 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 Onset: 10/08/2018 Social History Type Date Description Comments Sex Unknown Tobacco Use Start: Unknown Light tobacco smoker [...] active at work Allergies, Adverse Reactions, Alerts Active Allergies Reaction Severity Comments Date NSAIDs 06/17/2016 Tramadol 07/03/2016 Amoxicillin 10/15/2016 Doxycycline 10/15/2016 Ketorolac Tromethamine Severe 06/03/2018 Medications Active Medications SIG Qnty Indications Ordering Date Provider Rosuvastatin Calcium take 1 tablet by 90tabs E78.00 Sandi Owen, 2018 mouth every evening M.D. 10mg Tablets Nicoderm CQ Use 1 patch daily 21units F17.210 Rito Metzger MD 04/07/2018 14mg/24HR (pt not taking now) Patches 24HR Metoprolol Succinate take 1 1/2 tab 150tabs I47.1 Sandi Owen, 04/07/2018 ER daily. M.D. 25mg Tablets ER 24HR Magnesium Hydroxide 30 milliliters by Unknown mouth once a daily Powder Omeprazole 1 by mouth twice Unknown 40mg daily Capsules DR Tylenol Extra 2 by mouth as Unknown Strength needed 500mg Tablets Carafate 1 gram three times Unknown 1gm Tablets one hour before meals-- pt states she usually only takes twice, as she doesn't eat breakfast. Immunizations Description No Information Available Vital Signs [...] Ejection Fraction REF 55% stress echo 05/11/18 Results Description No Information Available Procedures Description No Information Available Medical Devices Description No Information Available Encounters Description No Information Available Assessments Description No Information Available Plan of Treatment Future Appointment(s):08/23/2019 9:30 am - Sandi Owen M.D. at [facility]10/08/2018 - Sandi Owen M.D.I47.1 Supraventricular tachycardiaComments:You have this. Brief rapid runs from upper chamber of the heart seen on monitor.Follow up:4 months after updated lipids.Recommendations: Lifestyle modifications that can decrease the extra beats: Avoid caffeine, alcohol and some over thecounter cold meds, example Suafed, Afrin. Get enough sleep. Manage your stress. Option of increasing metoprolol, try 37.5 mg ( 1 1/ 2 tabs daily). [email or web address] Unspecified right bundle-branch blockComments:You have a right bundle branch block this is new, likely degenerative and not dangerous.Z72.0 Tobacco useComments:You have to stop smoking, it puts you at risk for rhythm issues and heart attack.Z82.49 Family history of ischemic heart disease and other diseasesComments:Risks for coronary disease include:elevated blood pressure.Overweight.Elevated cholesterol.Elevated glucose/diabetesSmoking.Inactive lifestyle.Recommendations: Stop smoking. Regular exercise, 3 hours weekly. Better diet. Start cholesterol medicine.E78.00 Pure hypercholesterolemia, unspecifiedNew Medication: Rosuvastatin Calcium 10 mg - take 1 tablet by mouth every eveningComments:LDL goal for primary prevention is 100-130.Recommendations:Continue to work on diet , exercise, lifestyle. Mediterranean diet. Start Rosuvastatin (crestor) 10 mg/ day. Functional Status Description No Information Available Mental Status Description No Information Available Referrals Description No Information Available
--- OUTSIDE RECORDS SUMMARY | 2019-09-12 08:56 | XMS REPORT | Continuity of Care Document ---
:1975 External Reference #:[id number] Author Name Sandi Owen M.D. (transmitted by agent of provider Ramonita Muñiz) Address [address] [place] [id number] Care Team Providers Name Role Phone Rito Metzger MD - Hospitalist Care Team Information Routing Machine Operator [phone] Yusuf Ayala MD - Family Care Team Information Routing Machine Operator [phone] Medicine Problems Active Problems Provider Date Tobacco user Rito Metzger MD Onset: 04/07/2018 Palpitations Rito Metzger MD Onset: 04/07/2018 Obstructive sleep apnea syndrome Rito Metzger MD Onset: 04/07/2018 Paroxysmal supraventricular tachycardia Rito Metzger MD Onset: 04/07/2018 Hyperlipidemia screening Rito Metzger MD Onset: 04/07/2018 Abnormal weight gain Rito [...] day or fewer cigarettes/day) Smoking Status Reviewed: 09/02/19 Light tobacco smoker (10 8-10 per day or fewer cigarettes/day) Exercise Type/Frequency Exercises sporadically active at work Allergies, Adverse Reactions, Alerts Active Allergies Reaction Severity Comments Date NSAIDs 06/17/2016 Tramadol 07/03/2016 Amoxicillin 10/15/2016 Doxycycline 10/15/2016 Ketorolac Tromethamine Severe 06/03/2018 Medications Active Medications SIG Qnty Indications Ordering Date Provider Rosuvastatin Calcium take 1 tablet by 90tabs E78.00 Sandiadrianna Owen, 2018 mouth every evening M.D. 10mg Tablets Metoprolol Succinate take 1 tab daily. 90tabs I47.1 Sandi Owen, 2017 ER M.D. 25mg Tablets ER 24HR Magnesium Hydroxide 30 milliliters by Unknown mouth once a daily Powder Tylenol Extra 2 by mouth as Unknown Strength needed 500mg Tablets Medications Administered in Office Medication SIG Qnty Indications Ordering Provider Date Technetium TC 99M Rajesh Bo, DO [facility] 08/23/2019 Tetrofosmin, Per Unit Dose Up To 40 Millicuries Injection Technetium TC 99M Rajesh Bo, DO [facility] 08/23/2019 Tetrofosmin, Per Unit Dose Up To 40 Millicuries Injection Immunizations Description No Information Available Vital Signs Date Vital Result Comment 09/02/2019 8:17am Height 62 inches 5'2" Weight 221.38 lb w/ shoes Heart Rate 56 /min L. radial, regular BP Systolic Sitting 118 mmHg LA, lg cuff BP Diastolic Sitting 76 mmHg LA, lg cuff BP Systolic Standing 112 mmHg LA, reg cuff BP Diastolic Standing 78 mmHg LA, reg cuff BMI (Body Mass Index) 40.5 kg/m2 Ejection Fraction 50-55% 04/21/18 10/08/2018 8:05am Height 62 inches 5'2" Weight 216.00 lb Heart Rate 86 /min BP Systolic Sitting 106 mmHg Lue lg cuff BP Diastolic Sitting 74 mmHg Lue lg cuff BP Systolic Standing 102 mmHg Lue BP Diastolic Standing 76 mmHg Lue Respiratory Rate 18 /min BMI (Body Mass Index) 39.5 kg/m2 Ejection Fraction 50-55% as of 03/2018 echo Results Description No Information Available Procedures Date Code Description Status 08/23/2019 13230 Stress Test Completed 08/23/2019 87007 Myocardial Perfusion Imaging Tomographic (Spect) Multiple Completed Studies Medical Devices Description No Information Available Encounters Type Date Location Provider Dx Diagnosis Office Visit 09/02/2019 [facility] Sandiadrianna Owen, I47.1 Supraventricular 8:20a Of Mds Coordinator AT [facility] M.D. tachycardia R00.2 Palpitations R07.9 Chest pain, unspecified E78.2 Mixed hyperlipidemia Assessments Date Code Description Provider 09/02/2019 I47.1 Supraventricular tachycardia Sandi Owen M.D. 09/02/2019 R00.2 Palpitations Sandi Owen M.D. 09/02/2019 R07.9 Chest pain, unspecified Sandi Owen M.D. 09/02/2019 E78.2 Mixed hyperlipidemia Sandi Owen M.D. 08/23/2019 R07.9 Chest pain, unspecified Sandi Owen M.D. 08/23/2019 R07.9 Chest pain, unspecified Rajesh Bo DO [facility] Plan of Treatment 09/02/2019 - Sandi Owen M.D.I47.1 Supraventricular tachycardiaFollow up:1 yearR00.2 PalpitationsComments:Stable, 2-3 x weekly.R07.9 Chest pain, unspecifiedComments:Awoke with it in June.No recurrence since.Your stress test is reassuring, there was no evidence of significant blockages in the arteries supplying your heart. The strength of your heart remains normal.E78.2 Mixed hyperlipidemiaFollow up:We will call with results. Functional Status Description No Information Available Mental Status Description No Information Available Referrals Description No Information Available
--- NOTE | 2019-09-12 09:02 | ED ---
Influenza-Like Illness - HPI Summary HPI Summary: Pt. is a 44 y.o female who presents to the ER with c/o flu like symptoms that started 4 days ago. No significant past medical hx. Pt. notes numerous family members sick at home with strep and flu. Pt. notes significant sinus pain/ congestion, ear pain, sore throat, cough and myalgias. Sxs are mild in severity. No current modifying factors. - History of Current Complaint Chief Complaint: EDFluSymptoms Time Seen by Provider: 09/12/19 08:51 Hx Obtained From: Patient - Allergy/Home Medications Allergies/Adverse Reactions: Allergies Allergy/AdvReac Type Severity Reaction Status Date / Time ketorolac Allergy Swelling Verified 12/10/18 10:28 Of Face,Lips,& Throat NSAIDS (Non-Steroidal Allergy See Comment Verified 12/10/18 10:28 Anti-Inflamma tramadol Allergy Headache Verified 12/10/18 10:28 amoxicillin AdvReac See Comment Verified 12/10/18 10:28 PMH/Surg Hx/FS Hx/Imm Hx Previously Healthy: Yes Endocrine/Hematology History: Reports: Hx Diabetes - Pre-DIABETIC, Hx Anemia - WITH Denies: Hx Systemic Lupus Erythematosus Cardiovascular History: Reports: 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 SURGERIES History: Reports: Hx Kidney Stones - Hx OF , PASSED ON OWN, NONE IN RECENT YEARS, Other Problems/Disorders Denies: Hx Dialysis, Hx Renal Disease Musculoskeletal History: Reports: Hx Arthritis - fingers Denies: Hx Rheumatoid Arthritis Sensory History: Reports: Hx Contacts or Glasses - CONTACTS, WILL WEAR GLASSES DAY OF SURGERY Denies: Hx Hearing Aid Opthamlomology History: Reports: Hx Contacts or Glasses - CONTACTS, WILL WEAR GLASSES DAY OF SURGERY Neurological History: Reports: Hx Migraine - Hx OF, EVERY FEW MONTHS - Cancer History Hx Chemotherapy: No - Surgical History [place], Year, and [place] [facility] [place] [facility]. 1992 VENTRAL HERNIA REPAIR & [place]ATION [place] 2009 HEATHER FUND[place] [facility] [place] [facility] [place] [facility] [place] [facility]. 2016 hernia repair with mesh insert Hx Anesthesia Reactions: No - Immunization History Date of Influenza Vaccine: 2018 Infectious Disease History: No Infectious Disease History: Reports: Hx Shingles Denies: History Other Infectious Disease, Traveled Outside the in Last 30 Days - Family History Known Family History: Positive: Cardiac Disease, Diabetes, Non-Contributory - Social History Occupation: Employed Full-time Lives: With Family Alcohol Use: Rare Alcohol Amount: "maybe once every few weeks I'll have a glass of wine" Hx Substance Use: No Substance Use Type: Reports: None Hx Tobacco Use: Yes Smoking Status (MU): Heavy Every Day Tobacco Smoker Type: Cigarettes Amount Used/How Often: <1 PACK A DAY 20 YRS Have You Smoked in the Last Year: Yes Review of Systems Positive: Chills Positive: Sore Throat, Ear Ache, Nasal Discharge Cardiovascular: Negative Positive: Cough. Negative: Shortness Of Breath Gastrointestinal: Negative Positive: Diarrhea. Negative: Abdominal Pain, Vomiting Genitourinary: Negative Positive: Myalgia Skin: Negative Negative: Rash Neurological: Negative All Other Systems Reviewed And Are Negative: Yes Physical Exam Triage Information Reviewed: Yes Vital Signs On Initial Exam: Initial Vitals Temp Pulse Resp BP Pulse Ox 98.7 F 83 16 144/88 100 09/12/19 08:36 09/12/19 08:36 09/12/19 08:36 09/12/19 08:36 09/12/19 08:36 Vital Signs Reviewed: Yes Appearance: Positive: Well-Appearing - Pt. sitting up in bed in [facility] Skin: Positive: Warm, Dry Head/Face: Positive: Normal Head/Face Inspection Eyes: Positive: Normal, EOMI, MCKENNA, Conjunctiva Clear ENT: Positive: Other - TM's mildly erythematous bilaterally. Oral pharynx injected with mild tonsilar edema. No excudate. Uvula midline. Markd, diffuse sinus tenderness throughout. Neck: Positive: Supple, Nontender. Negative: Nuchal Rigidity Respiratory/Lung Sounds: Positive: Clear to Auscultation, Breath Sounds Present. Negative: Rales, Rhonchi, Wheezes Cardiovascular: Positive: Normal, RRR Musculoskeletal: Positive: Normal, Strength/ROM Intact Neurological: Positive: Normal, CN Intact II-III Psychiatric: Positive: Affect/Mood Appropriate Procedures - Sedation Patient Received Moderate/Deep Sedation with Procedure: No Diagnostics - Vital Signs Vital Signs Temp Pulse Resp BP Pulse Ox 09/12/19 08:36 98.7 F 83 16 144/88 100 - Laboratory Lab Results: Lab Results 09/12/19 Range/Units 08:37 Influenza A (Rapid) Pending Influenza B (Rapid) Pending Lab Statement: Any lab studies that have been ordered have been reviewed, and results considered in the medical decision making process. Flu Symptom Course/Dx - Course Course Of Treatment: Patient with flulike symptoms. Nontoxic appearing. Negative influenza and rapid strep. Patient is a history of sinusitis and has marked tenderness on exam. She also has mild erythema to bilateral tympanic membranes. We'll treat with Augmentin. Will follow-up with PCP within one week if symptoms persist. Tylenol for pain as directed. Patient return to the ear symptoms change or worsen. Patient understands and agrees with plan. - Diagnoses Differential Diagnosis/HQI/PQRI: Positive: Influenza, Pneumonia, Upper Respiratory Infection Provider Diagnoses: Sinusitis Discharge ED - Sign-Out/Discharge Documenting (check all that apply): Patient Departure - Discharge Plan Condition: Good Disposition: HOME Prescriptions: Amoxicillin/Clavulanate TAB* [Augmentin TAB 875*] 875 mg PO BID #20 tab Fluconazole 150 MG TAB* [Diflucan 150 MG TAB*] 150 mg PO ED ONCE #2 tablet Patient Education Materials: Sinusitis (ED) Referrals: Yusuf Ayala MD [Primary Care Provider] - Additional Instructions: Follow up with PCP within one week if symptoms persist Start antibiotic if sinus congestion/pressure worsens Tylenol for pain as directed Increase fluids and rest Return to ER if symptoms change or worsen - Billing Disposition and Condition Condition: GOOD Disposition: Home
[2019-09-12 09:07] LABS: Influenza A Molecular NEGATIVE (Negative); Influenza B Molecular NEGATIVE (Negative)
[2019-09-12 09:24] LABS: Rapid Strep Molecular Negative (Negative)
[2019-09-12 09:57] VITALS: BP 128/77
== END 2019-09-12 09:52 | disposition home or self-care (01) ==
LOC: ED 08:25
DX: J32.9 Chronic sinusitis, unspecified (principal); J02.9 Acute pharyngitis, unspecified; H92.03 Otalgia, bilateral; R73.03 Prediabetes; K21.9 Gastro-esophageal reflux disease without esophagitis; Z88.6 Allergy status to analgesic agent; Z88.5 Allergy status to narcotic agent; Z88.0 Allergy status to penicillin; F17.210 Nicotine dependence, cigarettes, uncomplicated
CPT/HCPCS: 87651; 99282

== ENCOUNTER 2019-10-20 16:36 | Emergency (ER) | payer BC ==
[2019-10-20 16:54] VITALS: BP 135/70
[2019-10-20 17:07] LABS: Influenza A Molecular Negative (Negative); Influenza B Molecular Negative (Negative)
--- NOTE | 2019-10-20 17:14 | UC ---
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 She has been taking about 3000mg of acetaminophen per day for discomfort. Voice is hoarse off and on. Smokes daily, hx of past pneumonia and bronchitis, has used inhalers only at time of bronchitis dx. No nausea or vomiting/ - History of Current Complaint Chief Complaint: UCRespiratory Stated Complaint: CONGESTED Time Seen by Provider: 10/20/19 16:42 Hx Obtained From: Patient Hx Last Menstrual Period: hyster Onset/Duration: Gradual Onset, Lasting Days Timing: Intermittent Episodes Severity Initially: Mild Severity Currently: Moderate Pain Intensity: 0 Character: Cough: Productive Aggravating Factors: Exertion, Deep Breaths Alleviating Factors: OTC Meds Associated Signs And Symptoms: Positive: Dyspnea, Chills, Wheezing, Hoarseness Related History: Seasonal Allergies - Risk Factors Pulmonary Embolism Risk Factors: Smoking Cardiac Risk Factors: Smoking, Family History Pseudomonas Risk Factors: Negative Tuberculosis Risk Factors: Negative - Allergies/Home Medications Allergies/Adverse Reactions: Allergies Allergy/AdvReac Type Severity Reaction Status Date / Time ketorolac Allergy Swelling Verified 10/20/19 16:51 Of Face,Lips,& Throat NSAIDS (Non-Steroidal Allergy See Comment Verified 10/20/19 16:51 Anti-Inflamma tramadol Allergy Headache Verified 10/20/19 16:51 amoxicillin AdvReac See Comment Verified 10/20/19 16:51 Home Medications: Home Medications Omeprazole CAP (NF) [Prilosec CAP* 20 MG] 40 mg PO BID 03/06/16 [History Confirmed 10/20/19] Acetaminophen [Acetaminophen Extra Strength] 1,500 mg PO Q6H PRN 09/28/17 [ History Confirmed 10/20/19] Metoprolol Succinate XL TAB* [Toprol XL TAB*] 37.5 mg PO DAILY 11/04/18 [ History Confirmed 10/20/19] Rosuvastatin Calcium 10 mg PO DAILY 11/04/18 [History Confirmed 10/20/19] Magnesium Hydroxide LIQ* [Milk of Magnesia LIQ*] 30 ml PO DAILY 12/10/18 [ History Confirmed 10/20/19] Albuterol HFA INHALER* [Ventolin HFA Inhaler*] 2 puff INH Q6H PRN #1 mdi [Rx] Amoxicillin/Clavulanate TAB* [Augmentin TAB 875*] 875 mg PO BID #14 tab [Rx] Fluconazole 150 MG (NF) [Diflucan 150 mg (NF)] 150 mg PO ONCE #1 tab 10/20/19 [ Rx] PMH/Surg Hx/FS Hx/Imm Hx Endocrine History: Dyslipidemia Cardiovascular History: Other - SVT Respiratory History: Bronchitis, Pneumonia GI/ History: Other - hx of perforation and abdominal surgeries - Surgical History Surgical History: Yes Surgery Procedure, Year, and Place: 1991& [address] [facility] [place]. 2007 HYSTERECTOMY RT [facility]. 1992 VENTRAL HERNIA REPAIR & A[facility]ATION ,[place]. [address] [facility] [place]. 2010 GASTRIC PERFORATION, [facility] [place]. 2013 ADHESIONS REMOVED FROM ABDOMEN [facility]. 2013 ABLATION RT [facility]. 2016 hernia repair with mesh insert - Family History Known Family History: Positive: Cardiac Disease, Diabetes, Respiratory Disease - Social History Occupation: Employed Full-time Lives: With Family Alcohol Use: Rare Alcohol Amount: "maybe once every few weeks I'll have a glass of wine" Substance Use Type: None Smoking Status (MU): Heavy Every Day Tobacco Smoker Type: Cigarettes Amount Used/How Often: <1 PACK A DAY 20 YRS Have You Smoked in the Last Year: Yes Household Exposure Type: Cigarettes - Immunization History Most Recent Influenza Vaccination: 2008 Most Recent Tetanus Shot: Up to date Most Recent Pneumonia Vaccination: 2003 AT LEAST Review of Systems All Other Systems Reviewed And Are Negative: Yes Constitutional: Positive: Chills, Fatigue Skin: Positive: Negative Eyes: Positive: Negative ENT: Positive: Sore Throat, Nasal Discharge, Sinus Congestion Respiratory: Positive: Shortness Of Breath, Cough Cardiovascular: Negative: Palpitations, Chest Pain Gastrointestinal: Positive: Negative Genitourinary: Positive: Negative Motor: Positive: Negative Neurovascular: Positive: Negative Musculoskeletal: Positive: Negative Neurological/Mental Status: Positive: Negative Psychological: Positive: Negative Is Patient Immunocompromised?: No Physical Exam Triage Information Reviewed: Yes Appearance: Well-Appearing, No Pain Distress, Other: - hoarse voice Vital Signs: Initial Vital Signs Temp 98.6 F 10/20/19 16:53 Pulse 74 10/20/19 16:53 Resp 18 10/20/19 16:53 BP 135/70 10/20/19 16:53 Pulse Ox 100 10/20/19 16:53 Vital Signs Reviewed: Yes Eyes: Positive: Conjunctiva Clear ENT: Positive: Pharyngeal erythema, TMs normal Neck: Positive: Supple, Nontender, No Lymphadenopathy Respiratory: Positive: No accessory muscle use, Decreased breath sounds - tending not to breathe deeply due to cough and wheeze., Wheezing - with forced expiration only. Cardiovascular: Positive: RRR, No Murmur Musculoskeletal Exam: Normal Neurological Exam: Normal Neurological: Positive: Alert Psychological Exam: Normal Skin Exam: Normal Diagnostics - Laboratory Lab Results: influenza negative. Respiratory Course/Dx - Course Course Of Treatment: Chronic smoker, with symptoms suggestive of bronchitis. Could be viral illness, but described purulent sputum. Will treat with albuterol and antibiotic. Discussed antibiotic allergies--she has taken augmentin in the past and has no rash or breathing response. Thinks it is on her med list because it causes yeast vaginitis, but so do most antibiotics. She does have a home spacer for albuterol use. - Differential Dx/Diagnosis Differential Diagnosis/HQI/PQRI: Asthma, Bronchitis, Lower Resp Infection Provider Diagnosis: Bronchitis Discharge ED - Sign-Out/Discharge Documenting (check all that apply): Patient Departure All imaging exams completed and their final reports reviewed: No Studies - Discharge Plan Condition: Stable Disposition: HOME Prescriptions: Albuterol HFA INHALER* [Ventolin HFA Inhaler*] 2 puff INH Q6H PRN #1 mdi PRN Reason: Wheezing Amoxicillin/Clavulanate TAB* [Augmentin TAB 875*] 875 mg PO BID #14 tab Fluconazole 150 MG (NF) [Diflucan 150 mg (NF)] 150 mg PO ONCE #1 tab Patient Education Materials: Acute Bronchitis (ED) Forms: *Work Release Referrals: Yusuf Ayala MD [Primary Care Provider] - Additional Instructions: Please take the full course of antibiotics. Use albuterol as needed to relieve cough and wheeze, taking 2 purrs up to 4 times per day. A prescription has been sent for fluconazole to treat a yeast infection should it occur as a result of the antibiotic. If you have increased difficulty breathing or develop a fever, please return for follow up or see Dr. Lanza. Smoke stopping efforts would be helpful. - Billing Disposition and Condition Condition: STABLE Disposition: Home
== END 2019-10-20 17:46 | disposition home or self-care (01) ==
LOC: UCEAST 16:36
DX: J40 Bronchitis, not specified as acute or chronic (principal); J39.2 Other diseases of pharynx; J02.9 Acute pharyngitis, unspecified; F17.210 Nicotine dependence, cigarettes, uncomplicated; I47.1 Supraventricular tachycardia; R09.89 Other specified symptoms and signs involving the circulatory and respiratory systems; Z79.899 Other long term (current) drug therapy; Z88.0 Allergy status to penicillin; Z88.6 Allergy status to analgesic agent; Z88.5 Allergy status to narcotic agent
CPT/HCPCS: 99212; G0463